=== PATIENT | female | born 1960 | race Native Hawaiian/Other Pacific Islander ===

== ENCOUNTER 2019-08-26 11:55 | Inpatient (IN) | payer OTHER ==
[~2019-08-26] VITALS: Ht 157.5 cm; Wt 59.0 kg
[2019-08-26 11:57] VITALS: BP 100/52
[2019-08-26 13:03] LABS: HEMATOCRIT 25.2 % (37.0-47.0); HEMOGLOBIN 8.3 gm/dL (12.0-15.0); MCH 26.6 pg (26.0-34.0); MCHC 32.8 g/dL (28.0-37.0); MCV 81.1 fL (80.0-100.0); PLATELET COUNT 227 thou/uL (150-400); RBC 3.11 mil/uL (4.20-5.00); RDW 17.5 % (10.5-14.5); WBC 7.2 thou/uL (4.0-11.0)
[2019-08-26 13:12] LABS: CREATININE 0.7 mg/dL (0.6-1.0); POTASSIUM 3.3 mmol/L (3.5-5.1)
[2019-08-26 13:22] LABS: ALBUMIN 2.1 g/dL (3.4-5.0); TOTAL PROTEIN 5.8 g/dL (6.4-8.2)
[2019-08-26 13:28] LABS: ABSOLUTE NEUTROPHILS 6.1 thou/uL (1.4-8.2)
[2019-08-26 13:29] LABS: ANISOCYTOSIS 1+; POLYCHROMASIA OCCASIONAL
[2019-08-26 14:17] LABS: URINE BILIRUBIN 1+ (Negative); URINE BLOOD TRACE (Negative); URINE CLARITY CLEAR; URINE COLOR YELLOW; URINE GLUCOSE-RANDOM* NEGATIVE (Negative); URINE KETONES NEGATIVE (Negative); URINE LEUKOCYTES-REFLEX NEGATIVE (Negative); URINE NITRITE-REFLEX NEGATIVE (Negative); URINE PROTEIN (DIPSTICK) TRACE (Negative); URINE SPECIFIC GRAVITY 1.015 (1.005-1.035)
[2019-08-26 14:21] LABS: ICTOTEST (BILI CONFIRMATORY) Negative (Negative)
[2019-08-26 17:27] LABS: APTT 41.9 Seconds (24.5-32.8); INR 1.1; PROTIME 10.8 Seconds (9.3-11.4)
--- NOTE | 2019-08-26 17:49 | NUR ---
HOSPITALIST AT BEDSIDE TO ASSESS PT AND DISCUSSED WITH FAMILY PLAN OF CARE
[2019-08-26 18:10] VITALS: BP 109/60
[2019-08-26 18:30] VITALS: BP 102/76
--- NOTE | 2019-08-26 18:59 | NUR ---
patient admit to unit at 1845. report given to june RN.
[2019-08-26 20:17] VITALS: BP 90/50
[2019-08-26 21:58] LABS: HEMATOCRIT 23.4 % (37.0-47.0); HEMOGLOBIN 7.6 gm/dL (12.0-15.0)
[2019-08-26 22:15] LABS: D-DIMER 2.1 ug/mLFEU (0.19-0.50)
[2019-08-26 22:20] LABS: FIBRINOGEN 508.6 mg/dL (210-360)
[2019-08-26 22:57] VITALS: BP 88/44
[2019-08-26 23:52] VITALS: BP 95/46
[2019-08-27] VITALS (54 sets, daily range): BP systolic 49–143; BP diastolic 21–73
[2019-08-27 00:39] LABS: HEMATOCRIT 22.2 % (37.0-47.0); HEMOGLOBIN 7.2 gm/dL (12.0-15.0); MCH 26.7 pg (26.0-34.0); MCHC 32.4 g/dL (28.0-37.0); MCV 82.3 fL (80.0-100.0); RBC 2.7 mil/uL (4.20-5.00); RDW 17.4 % (10.5-14.5); WBC 7.6 thou/uL (4.0-11.0)
[2019-08-27 00:46] LABS: CALCIUM 6.8 mg/dL (8.5-10.1); CREATININE 0.8 mg/dL (0.6-1.0); POTASSIUM 3.2 mmol/L (3.5-5.1)
--- NOTE | 2019-08-27 01:58 | NUR ---
PT ARRIVED TO ICU ACCOMPANIED BY 3W RNGABBY. PT PASHTO SPEAKING ONLY. PT ALERT AND ORIENTED TO PERSON, PLACE AND SITUATION. PT C/O TENDERNESS ON HER MIDSECTION EXTENDING FROM HER PUBIS AREA DOWN TO HER KNEES. PT SR ON THE MONITOR. HYPOTENSIVE. BLOOD TRANSFUSION CONSENT OBTAINED. PT ORIENTATED TO THE ROOM. WILL CONTINUE TO MONITOR.
--- NOTE | 2019-08-27 02:32 | NUR ---
PT ADMITTED TO [facility] FROM ER FROM HOME. SHE CAME IN FOR C/O BILATERAL GROIN PAIN AND PUBIS PAIN. PT STATED PAIN BECAME WORSE STARTING ON WEDNESDAY NIGHT TO THE POINT WHERE SHE IS UNABLE TO WALK TODAY DUE TO THE PAIN. PT IS CROATIAN SPEAKING ONLY. BOOK RETAILER WAS NEEDED TO OBTAIN HER ADMISSIONS DATA. PT IS A POOR HISTORIAN REGARDING HER MEDICATION DOSES AND DID NOT HAVE A CURRENT LIST OF HER HOME MEDICATIONS. WHEN BOOK RETAILER ASKED HER FOR HER DAUGHTERS PHONE NUMBER PT STATED SHE DID NOT KNOW IT BUT GAVE US HER HOME NUMBER BECAUSE HER DAUGHTER GOES THERE FREQUENTLY. A&O X4. RUBY. FOLLOWS FEW COMMANDS WITH HAND GESTURES. INSTRUCTED PT ON FALL PRECAUTIONS WITH HELP OF BOOK RETAILER. HRR, LUNGS CTA. BP AT START OF SHIFT IN 90'S OVER 50'S. 99.5T . SAT WNL ON RA. A FEW HOURS LATER BP DROPPED TO 88/40'S. NOTIFIED TYSON BEAR REGARDING BP 88/44 , TEMP INCREASED TO 100.5, RR INCREASED T0 24, SATS STILL 97% ON RA., FIBRINOGEN 508.6, D-DIMER 2.10, HG DROPPED TO 7.6, REPORTED NO UO IN SEVERAL HOURS. BLADDER SCANNED 91 AND 114. NS BOLUS STARTED ORDERED. ABX STARTED. NS INCREASED TO 150 ORDERED. T&C DONE ORDERED. LABS SENT ORDERED. PT TRANSFERRED TO ICU ORDERED. CONSULTS CALLED ORDERED. TYSON BEAR SPOKE WITH DR LAUREN HERSELF. REPORT CALLED TO MIRNA PEREZ IN ICU.
[2019-08-27 05:14] LABS: HEMATOCRIT 24.8 % (37.0-47.0); HEMOGLOBIN 8.1 gm/dL (12.0-15.0); MCH 26.4 pg (26.0-34.0); MCHC 32.8 g/dL (28.0-37.0); MCV 80.6 fL (80.0-100.0); RBC 3.08 mil/uL (4.20-5.00); RDW 18.7 % (10.5-14.5); WBC 7.3 thou/uL (4.0-11.0)
[2019-08-27 05:25] LABS: CALCIUM 6.8 mg/dL (8.5-10.1); CREATININE 0.7 mg/dL (0.6-1.0); POTASSIUM 3.6 mmol/L (3.5-5.1)
--- NOTE | 2019-08-27 10:25 | HC ---
[facility] [address] [place] [address] CONSULTATION Name: SENA CARRASCO Room #: 239-P ADM IN M.R.#: [id number] Admission: 08/26/19 Attend Phys: Delonte Beverly Discharge: Date of : 60 Report #: [id number] THIS REPORT FOR: cc: SCAR - Melony family physician/PCP SCAR - Melony family physician/PCP Kieran Donaldson MD ~ CC: [facility] physician/PCP Delonte Beverly DATE OF SERVICE: 08/27/2019 ATTENDING PHYSICIAN: Dr. Beverly. REASON FOR EVALUATION: Gram-positive septicemia. HISTORY OF PRESENT ILLNESS: Chart reviewed, patient examined. 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 It is not clear in her mind what initiated it. She did subsequently developed difficulty walking. She was evaluated, felt to have a pelvic-related musculoskeletal issue, was seen by a chiropractor, subsequently was evaluated, was found to have fever reportedly as high as 105. She is now currently in the intensive care unit. She is lucid. Denies any particular risk factors. 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 No other exposure history. Evaluation was done including CT which showed there is some subcutaneous fat stranding in anterior pelvis extending into the mons, some effusion, and a 6-cm fluid collection in the right adductor longus muscle. There is question of a hematoma. Chest x-ray was otherwise unremarkable as was urinalysis. Had been transfused 1 unit. Blood cultures collected at the time of admission, 1 growing gram-positive cocci, empirically started on therapy with vancomycin as well as Zosyn. ALLERGIES: None known. CURRENT MEDICINES: Include the vanco, Zosyn, insulin lispro, p.r.n. analgesics, antiemetics, zolpidem. PAST MEDICAL HISTORY: As noted above, Vvayd-Molrp-Pfppi syndrome, diabetes mellitus, chronic anemia. SOCIAL HISTORY: Nonsmoker, no ethanol, no illicit drug use. FAMILY HISTORY: Noncontributory. REVIEW OF SYSTEMS: As above. Denies any significant pulmonary-related complaints. She is generally lucid. [address] [address] CONSULTATION Name: SENA CARRASCO Room #: 239-P [facility] IN M.R.#: [id number] Admission: 08/26/19 Attend Phys: Delonte Beverly Discharge: Date of : 60 Report #: [id number] PHYSICAL EXAMINATION: GENERAL: Pjfb-jp-unlpfvia distress. She is not encephalopathic. VITAL SIGNS: Temperature 99, T-max recorded here 103.5; pulse 82; respirations 27; blood pressure 97/47. SKIN: Warm, dry, no rashes. HEENT: Normocephalic. Extraocular muscles intact. NECK: Supple. LUNGS: Clear to auscultation bilaterally. HEART: Regular. I do not appreciate a murmur. ABDOMEN: Soft, nontender, nondistended. EXTREMITIES: Lower extremities without evidence of palpable tenderness. GENITOURINARY AND RECTAL: Deferred. LABORATORY AND IMAGING DATA: Blood cultures described above, 1 out of 2 with Gram-positive cocci. Most recent electrolytes from this morning: Sodium 136, potassium 3.6, chloride 106, bicarb is 22, anion gap of 8, BUN and creatinine 11 and 0.7, estimated GFR of 86. CBC: White count 7.3, H and H 8.1 and 24.8, platelets of 149. Lactic acid of 0.9. TSH of 1.280, CRP of 158.9. CT abdomen and pelvis as noted above. Comprehensive showed alk phos elevated at 456. Total bili 1.0, albumin of 2.1, total protein of 5.8. ASSESSMENT AND PLAN: Gram-positive cocci isolated in the blood culture, 1 out of 2. The patient has a pelvic fluid collection. It is difficult to ascertain what this may be. I think it is most likely a hematoma, certainly could be complicated by secondary infection. Seemingly, her temperature has come down. Whether this is due to initiation of antibiotics is unclear. We will continue those for the moment. We will await identification of the organism. Certainly, if it is a known pathogen, not clear as to the mechanism as now this would have developed and then probably her predilection to hemorrhage if she had a vigorous response to coughing or vomiting. See how she does clinically over the course of next 24 hours. Has multiple evaluators. Some consideration of surgery. Other option might be percutaneous aspiration to further define. <ELECTRONICALLY SIGNED> By: Kieran Donaldson MD 08/27/19 1025 0645 0800 Kieran Donaldson MD /nt
--- NOTE | 2019-08-27 16:49 | NUR ---
NO BLEEDING NOTED THIS SHIFT. PAIN CONTINUES TO LOWER ABDOMEN AND UPPER THIGHS WITH ANY MOVEMENT. CONTROLLED WITH MORPHINE. NO CHEST PAIN OR N/V. SR ON MONITOR AND BP WNL. VOIDS WITHOUT DIFFICULTY. COMMUNICATION WITH PATIENT THROUGH [employer]. SPOKE WITH DAUGHTER DARRION SEVERAL TIMES THIS SHIFT AND UPDATED HER ON PATIENT CONDITION.
[2019-08-27 20:11] LABS: % SATURATION 3 % (20-39); IRON 6 ug/dL (50-170); TIBC 179 ug/dL (250-450)
[2019-08-28] VITALS (46 sets, daily range): BP systolic 62–150; BP diastolic 33–88
[2019-08-28 04:54] LABS: HEMOGLOBIN 7.8 gm/dL (12.0-15.0); MCH 25.4 pg (26.0-34.0); MCHC 31.3 g/dL (28.0-37.0); MCV 81.3 fL (80.0-100.0); PLATELET COUNT 161 thou/uL (150-400); RBC 3.08 mil/uL (4.20-5.00); RDW 18.8 % (10.5-14.5); WBC 5.1 thou/uL (4.0-11.0)
[2019-08-28 05:05] LABS: APTT 45.6 Seconds (24.5-32.8); INR 1.3; PROTIME 13.1 Seconds (9.3-11.4)
[2019-08-28 05:15] LABS: ALBUMIN 1.5 g/dL (3.4-5.0); CALCIUM 6.4 mg/dL (8.5-10.1); CREATININE 0.7 mg/dL (0.6-1.0); MAGNESIUM 1.7 mg/dL (1.8-2.4); PHOSPHORUS 2.5 mg/dL (2.5-4.9); TOTAL BILIRUBIN 1.7 mg/dL (0.2-1.0); TOTAL PROTEIN 4.9 g/dL (6.4-8.2)
--- NOTE | 2019-08-28 05:49 | NUR ---
ASSUMED CARE 1900. PT ALERT AND ORIENTED. POLISH SPEAKING ON. RPG DEVELOPER UTILIZED. C/O GROIN AREA AND THIGH PAIN. MORPHINE AND TYLENOL PRN GIVEN. PT DENIES CHEST PAIN, NAUSEA OR VOMITING. PT REPORTS THAT SHE ALWAYS HAS NOSE BLEEDINGS ESPECIALLY WHEN MOVING AROUND OR STRAINING ON ANY KIND. DURING BEDPAN USE, PT REPORTED FEELS LIKE SHE WAS BLEEDING , SHE COULD FEEL BLOOD RUNNING DOWN HER THROAT NO ACTIVE NOSE BLEEDING OBSERVED. HGB 7.8 THIS MORNING FROM 8.1. VOIDING MINIMAL CONCENTRATED URINE. WILL CONTINUE TO MONITOR AND FOLLOW POC.
[2019-08-28 08:21] LABS: ABSOLUTE NEUTROPHILS 4.1 thou/uL (1.4-8.2); ANISOCYTOSIS 1+; PLATELET ESTIMATE NORMAL
--- NOTE | 2019-08-28 10:00 | NUR ---
chart review. unable to visit with pt at this time. cm called daughter rachelle, " ok let me end my phone call and add my sister to the call. cm placed on hold, then [facility] was face time from icu. will cont following as needed for dc needs.
--- NOTE | 2019-08-28 11:42 | NUR ---
discussed with md, pt going to need 2 nd negative covid test then can get ct of pelvis. cm tried calling pt daughter x 2 no answer. noted per chart pt is independent prior to hospital and has had bleed syndrome for a while, not 1st time she had this. will cont following as needed for dc needs. need to check with spouse or be able to visit with pt on being able to afford medications if needed, insurance pat.
--- NOTE | 2019-08-28 15:30 | NUR ---
PT CARE ASSUMED AT 0700, PT IS DIVEHI SPEAKING, INTERPRETING OFFICER CAPTAIN UTILIZED USED TO COMMUNICATE WITH PT. PT IS ALERT AND ORIENTED X4, DENIES CHST PAIN, NUASEA AND VOMITNG. PT IS ON ROOM AIR, O2 SAT WNL. COMPLAINS OF PELVIC AND VAGINA PAIN, STATES ITS A PRESSURE PAIN, 10/22, DR. LOZADA IS AWARE. PT TAKEN DOWN FOR A PELVIS CT. MORPHINE PRN GIVEN FOR PAIN ORDERED. PT STATES PAIN IS BETTER. CALL LIGHT TABLE WITHIN REACH. BED AT LOWEST LEVEL WITH ALARM ON. WILL CONTINUE TO MONITOR.
--- NOTE | 2019-08-28 16:02 | NUR ---
PT OFF ISOLATION PER DR. HARGROVE, INFECTIOUS DISEASE DOCTOR.
--- NOTE | 2019-08-28 17:46 | NUR ---
1700 PT COMPLAINS OF INCREASE PELVIC PAIN, DESCRIBES PAIN PRESSURE 10/10. MORPHINE GIVEN, DR. NEVILLE CUMMINGS.
--- NOTE | 2019-08-28 23:29 | NUR ---
PATIENT ADMITTED FROM ED DEPARTMENT AFTER COMPLETION OF CT SCAN AT 2024. PATIENT ALERT AND ORIENTED X4, PAIN CONTROLLED WITH MEDICATION. ON 4L NASAL CANNULA, NON-PRODUCTIVE COUGHT. LABWORK COMPLETED. NORMAL SALINE INFUSION, LEFOPHED AT 10MCG, SBP REMAINS ABOVE 60. PATIENT DID NOT VOID IN ED DEPARTMENT, NOTED HISTORY OF HESITANCY. MCALLISTER INSERTED PER ORDER, IMMEDIATLY DRAINED 1750 CLEAR YELLOW URINE, UA AND CULTURE SENT. NOTIFIED ASSEMBLY LINE INSPECTOR CHEMA THAT FULL SEPSIS PROTOCAL WASN'T ORDERED, NEW ORDERS NOTED. LACTIC DECREASED FROM INITIAL 5.[address] BEAR AWARE AND SERIAL LABWORK NOT COMPLED, WILL RECECK LABWORK IN THE MORNING. PATIENT STATED THAT WALLETT AND PANTS WERE MISSING, ER AND SECURITY NOTIFIED. PATIENT SPOKE WITH NEIGHBOR AND IT WAS CONFIRMED THAT GIRLFRIEND TOOK BELONGINGS HOME. PATIENT STATES GIRLFRIEND HAS A HISTORY OF CONFUSION. CALLED SON (STEPHAN) AT 2200 AND UPDATED ON PATIENT'S CONDITION. NO SIGN OF ACUTE DISTRESS NOTED AT THIS TIME. WILL CONTINUE TO MONITOR.
[2019-08-29] VITALS (38 sets, daily range): BP systolic 113–195; BP diastolic 53–113
--- NOTE | 2019-08-29 05:30 | NUR ---
PT STILL IN PAIN, PAIN MANAGED WITH TYLENOL AND MORPHINE OVERNIGHT. PT RESTED WELL OVERNIGHT. EDEMA NOTED ON LEFT HAND 2+. NO FURTHER COMPLAINS. PT IS STABLE WILL CONTINUE TO MONITOR.
[2019-08-29 05:44] LABS: HEMATOCRIT 25.9 % (37.0-47.0); HEMOGLOBIN 8.2 gm/dL (12.0-15.0); MCH 25.7 pg (26.0-34.0); MCHC 31.8 g/dL (28.0-37.0); MCV 80.8 fL (80.0-100.0); PLATELET COUNT 227 thou/uL (150-400); RBC 3.21 mil/uL (4.20-5.00); RDW 19.3 % (10.5-14.5); WBC 8.4 thou/uL (4.0-11.0)
[2019-08-29 05:58] LABS: CALCIUM 7.2 mg/dL (8.5-10.1); CREATININE 0.5 mg/dL (0.6-1.0); MAGNESIUM 1.9 mg/dL (1.8-2.4); POTASSIUM 3.7 mmol/L (3.5-5.1)
[2019-08-29 09:22] LABS: ABSOLUTE NEUTROPHILS 6.6 thou/uL (1.4-8.2)
[2019-08-29 09:23] LABS: METAMYELOCYTES 2 %
[2019-08-29 09:24] LABS: ANISOCYTOSIS 2+; HYPOCHROMASIA 1+
--- NOTE | 2019-08-29 16:22 | NUR ---
PATIENT REPORTS PAIN MORE CONTROLLED AFTER SWITCHING TO PO PAIN MEDICATION. US OF GROIN AND ABDOMEN COMPLETED TODAY. PATIENT COMPLAINS OF INCREASED INFLAMMATION TO EXTREMITIES AND ABDOMEN. PROVIDER NOTIFIED AND ORDERS OBTAINED. SPOKE WITH PATIENT'S DAUGHTER TWICE THIS SHIFT WITH UPDATES. PATIENT CHOSE DAUGHTER DESIGNATED VISITOR, EDUCATED PT AND FAMILY REGARDING POLICY FOR VISITATION. ACCURATELY ACKNOWLEDGED UNDERSTANDING WITH VERBAL CONFIRMATION. PATIENT IS ABLE TO MOVE SELF MORE TOWARDS END OF SHIFT WHILE PAIN IS MORE CONTROLLED. STILL UNABLE TO GET OUT OF BED. USING BEDPAN TO VOID. DENIES FEELINGS OF CONSTIPATION. PATIENT CALLS FOR ASSIST APPROPRIATELY. PATIENT CONTINUES TO HAVE DECREASED APPETITE. TOLERATES PO HYDRATION ADEQUATELY AND WILL EAT ITEMS SUCH JELLO AND APPLE SAUCE BUT STATES THAT SHE FEELS TOO TIGHT IN ABDOMEN TO TOLERATE FOOD. REPORT GIVEN TO FAIZA PEREZ AT 16:22.
[2019-08-30] VITALS (12 sets, daily range): BP systolic 116–166; BP diastolic 56–82
--- NOTE | 2019-08-30 05:29 | NUR ---
ASSUMED CARE OF PATIENT AT 1900. VSS, AFEBRILE. RESTING COMFORTABLY THROUGH THE NIGHT. USES BEDPAN FREQUENTLY DUE TO PO LASIX YESTERDAY. NO S/S OF DISTRESS. PROGRESSING TOWARDS POC GOALS.
[2019-08-30 06:26] LABS: HEMATOCRIT 27.5 % (37.0-47.0); HEMOGLOBIN 8.6 gm/dL (12.0-15.0); MCH 24.7 pg (26.0-34.0); MCHC 31.2 g/dL (28.0-37.0); RBC 3.48 mil/uL (4.20-5.00); RDW 18.9 % (10.5-14.5); WBC 11.5 thou/uL (4.0-11.0)
[2019-08-30 06:28] LABS: APTT 42.3 Seconds (24.5-32.8); INR 1.2; PROTIME 11.8 Seconds (9.3-11.4)
[2019-08-30 06:43] LABS: ALBUMIN 1.7 g/dL (3.4-5.0); CALCIUM 7.6 mg/dL (8.5-10.1); CREATININE 0.5 mg/dL (0.6-1.0); MAGNESIUM 1.6 mg/dL (1.8-2.4); TOTAL BILIRUBIN 0.9 mg/dL (0.2-1.0); TOTAL PROTEIN 5.5 g/dL (6.4-8.2)
[2019-08-30 06:45] LABS: POTASSIUM 2.8 mmol/L (3.5-5.1)
--- NOTE | 2019-08-30 07:48 | EKG ---
[facility] [place] [address] ELECTROCARDIOGRAM REPORT Name: SENA CARRASCO Room #: 239-P ADM IN M.R.#: [id number] Admission: 08/26/19 Attend Phys: Delonte Beverly Discharge: Date of : 60 Report #: [id number] THIS REPORT FOR: cc: SCAR - Melony family physician/PCP SCAR - Melony family physician/PCP He Miller MD [facility] THIS REPORT FOR: //name// [facility] Test Date: 2019-08-30 Test Time: 07:16:14 Pat Name: SENA CARRASCO Department: Room: 239 P Gender: F Supervisor [employer]: Kae JUAREZ : 1960 Requested By: David Samuel Order Number: [id number] MD: He Miller Measurements Intervals Ohlman Rate: 81 P: 39 WI: 159 QRS: 25 QRSD: 101 T: 30 QT: 377 QTc: 438 Interpretive Statements Sinus rhythm Normal tracing No previous ECG available for comparison Electronically Signed On 08-30-2019 7:47:09 CDT by He Miller [email or web address] <ELECTRONICALLY SIGNED> By: He Miller MD, [facility] [id number] [phone] He Miller MD, [facility] /EPI
--- NOTE | 2019-08-30 10:21 | 2DMMODE ---
[facility] [address] [facility] [place] [address] 2 D/M-MODE ECHOCARDIOGRAM Name: SENA CARRASCO Room #: 239-P ADM IN M.R.#: [id number] Admission: 08/26/19 Attend Phys: Delonte Beverly Discharge: Date of : 60 Report #: [id number] THIS REPORT FOR: cc: FAM - No family physician/PCP FAM - No family physician/PCP René Mendoza MD ~ APPROVED REPORT Study performed: 08/30/2019 09:38:01 EXAM: Comprehensive 2D, Doppler, and color-flow Echocardiogram Patient Location: ICU Room #: 239 Status: routine BSA: 1.57 HR: 82 bpm BP: 124/56 mmHg Rhythm: NSR Other Information Study Quality: Good Indications Bacteremia, sepsis. Hx: DM 2D Dimensions RVDd: 42.13 mm IVSd: 9.79 (7-11mm) LVOT Diam: 20.46 (18-24mm) LVDd: 51.16 mm PWd: 10.68 (7-11mm) Ascending Ao: 30.20 (22-36mm) LVDs: 35.06 (25-40mm) Aortic Root: 32.54 mm Volumes Left Atrial Volume (Systole) Single Plane 4CH: 90.68 mL Single Plane 2CH: 74.55 mL LA ESV Index: 57.00 mL/m2 Aortic Valve AoV Peak Jace.: 2.34 m/s AO Peak Gr.: 21.95 mmHg LVOT Max P.16 mmHg LVOT Max V: 1.59 m/s THANH Vmax: 2.24 cm2 [facility] [address] [place] [address] 2 D/M-MODE ECHOCARDIOGRAM Name: SENA CARRASCO Room #: 239-P [facility].#: [id number] Admission: 08/26/19 Attend Phys: Delonte Johnson Discharge: Date of : 60 Report #: [id number] Mitral Valve E/A Ratio: 0.8 MV Decel. Time: 179.46 ms MV E Max Jace.: 1.31 m/s MV A Jace.: 1.68 m/s MV PHT: 52.04 ms IVRT: 55.36 ms Pulmonary Valve PV Peak Jace.: 1.24 m/s PV Peak Gr.: 6.16 mmHg Pulmonary Vein P Vein S: 0.56 m/s P Vein A: 0.47 m/s P Vein D: 0.45 m/s P Vein A Dur.: 121.1 msec P Vein S/D Ratio: 1.24 Tricuspid Valve TR Peak Jace.: 2.87 m/s RAP Estimate: 10.00 mmHg TR Peak Gr.: 33.02 mmHg PA Pressure: 43.00 mmHg Left Ventricle The left ventricle is normal size. There is normal LV segmental wall motion. There is normal left ventricular wall thickness. Left ventricular systolic function is normal. LVEF is 60-65%. Mild diastolic dysfunction is present (impaired relaxation pattern). Right Ventricle The right ventricle is normal size. The right ventricular systolic function is normal. Atria Left atrium is severely dilated. Right atrium is at the upper limits of normal. Aortic Valve The aortic valve is normal in structure. No aortic regurgitation is present. There is no aortic valvular stenosis. Mitral Valve Mitral valve leaflets are mildly calcified. Mild mitral annular calcification. Trace to mild mitral regurgitation. No evidence of mitral valve stenosis. [facility] [address] [place] [address] 2 D/M-MODE ECHOCARDIOGRAM Name: SENA CARRASCO Room #: 239-P [facility] IN M.R.#: [id number] Admission: 08/26/19 Attend Phys: Delonte Johnson Discharge: Date of : 60 Report #: [id number] Tricuspid Valve The tricuspid valve is normal in structure. Trace to mild tricuspid regurgitation. Estimated PAP is 40-45mmHg. Pulmonic Valve The pulmonary valve is normal in structure. Trace pulmonic regurgitation. Great Vessels The aortic root is normal in size. The ascending aorta is normal in size. IVC is dilated and partially collapses. Pericardium There is no pericardial effusion. <Conclusion> The left ventricle is normal size. LVEF is 60-65%. Left atrium is severely dilated. The aortic valve is normal in structure. Mitral valve leaflets are mildly calcified. Mild mitral annular calcification. Trace to mild mitral regurgitation. The tricuspid valve is normal in structure. Trace to mild tricuspid regurgitation. Estimated PAP is 40-45mmHg. The pulmonary valve is normal in structure. Trace pulmonic regurgitation. There is no pericardial effusion. <ELECTRONICALLY SIGNED> By: René Mendoza MD 08/30/19 1020 1020 1020 René Mendoza MD /INF
--- NOTE | 2019-08-30 15:34 | NUR ---
ECHO DONE, EF 60-65% WITH SEVERE L ATRIUM DILATION. SR WITHOUT ECTOPY. MAGNESIUM AND POTASSIUM REPLACED TODAY. AFEBRILE. PAIN SLIGHTLY BETTER AND CONTROLLED WITH TRAMADOL AND TIZANIDINE. OFFERED TO GET OUT OF BED TODAY BUT PATIENT REFUSED, TOO PAINFUL. PLAN ON REPEAT SOFT TISSUE US IN GROIN AREA TOMORROW.
[2019-08-31 05:45] LABS: HEMATOCRIT 26.7 % (37.0-47.0); HEMOGLOBIN 8.7 gm/dL (12.0-15.0); MCH 25.3 pg (26.0-34.0); MCHC 32.4 g/dL (28.0-37.0); MCV 78.1 fL (80.0-100.0); PLATELET COUNT 297 thou/uL (150-400); RBC 3.41 mil/uL (4.20-5.00); RDW 18.5 % (10.5-14.5); WBC 12.3 thou/uL (4.0-11.0)
[2019-08-31 06:04] LABS: CALCIUM 7.6 mg/dL (8.5-10.1); CREATININE 0.5 mg/dL (0.6-1.0); MAGNESIUM 1.6 mg/dL (1.8-2.4); POTASSIUM 3.4 mmol/L (3.5-5.1)
[2019-08-31 07:40] VITALS: BP 142/77
--- NOTE | 2019-08-31 11:48 | NUR ---
Nutrition: pt admitted with bilateral inner thigh pain, likely groin hematoma with possible infection and abscess per chart review. Consult received for food preferences. Pt is burmese speaking only and son/nsg present to interpret. During visit, pt voiced no specific food preferences stating things are better now since she had a BM. Is eating 50-75% of meals at present. RD provided menu and educated on ordering from alternative menu as desired with staff assist. No weight loss, UBW reported 116#. Current trends 137#, edema present. BG controlled on carb controlled diet. Place as low nutrition risk.
[2019-08-31 12:20] VITALS: BP 148/65
[2019-08-31 13:25] LABS: METAMYELOCYTES 2 %; MYELOCYTES 5 %
[2019-08-31 13:26] LABS: ANISOCYTOSIS 2+; HYPOCHROMASIA 2+; OVALOCYTES FEW; POLYCHROMASIA OCCASIONAL
[2019-08-31 15:25] VITALS: BP 132/64
[2019-08-31 20:45] VITALS: BP 137/62
--- NOTE | 2019-08-31 21:00 | NUR ---
ASSUMED CARE OF PATIENT AT 0700. ASSESSMENTS COMPLETED. PATIENT GERMAN SPEAKING. PATIENT COMPLAINS OF RIGHT GROIN PAIN WHICH IS GIVEN MINIMAL RELIEF WITH TRAMADOL. PATIENT WORKED WITH PT AND WAS ABLE TO STAND AND SLOWLY MOVE TO THE CHAIR AFTER SITTING ON THE BEDSIDE COMMODE FOR A SHORT TIME. PATIENT CONTINUES TO USE BEDPAN. ACCU CHECKS AC&HS. PATIENT'S RIGHT HAND IV INFILTRATED AND A NEW ONE WAS PLACED IN THE RIGHT FOREARM. NO SIGNS OF SWELLING, REDNESS OR PAIN AT RIGHT HAND SITE. PATIENT TO CONTINUE WITH POC.
[2019-09-01 00:52] VITALS: BP 125/61
[2019-09-01 04:45] VITALS: BP 146/62
--- NOTE | 2019-09-01 04:54 | NUR ---
ASSUMED CARE OF PATIENT AT 1900. PATIENT AFEBRILE. NO S/S OF ACTIVE BLEEDING OBSERVED. PATIENT C/O PAIN IN GROIN AND BILATERAL THIGHS AT BEGINNING OF NIGHT. ADMINISTERED TRAMADOL AND TIZANIDINE. MEDICATION EFFECTIVE PATIENT RESTED WELL REMAINDER OF NIGHT.
[2019-09-01 07:55] VITALS: BP 135/62
[2019-09-01 11:45] VITALS: BP 138/65
--- NOTE | 2019-09-01 12:32 | NUR ---
Chart reviewed and case discussed with the care team. [employer] [place] and the pt does not have health insurance. Pt will likely need the lucinda application. She lives with her spouse and some adult children in a split level home. 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 She has had pain in her thigh and trouble with her mobility for several weeks prior to being admitted. She went to her pcp at the [facility] in [place] which is a [facility] clinic. She also was seen by a chiropractor. She has 6 children and very supportive family. She is Kiswahili speaking and is from [place]. She does travel back and forth to visit family. Plan of care pending CT scan today for possible surgical I/D. PT oswald noted. Will follow along for possible dme or medication assistance at [place].
[2019-09-01 15:41] VITALS: BP 151/64
--- NOTE | 2019-09-01 16:35 | NUR ---
ASSUMED PATIENT CARE AT 0700 THIS MORNING. PATIENT REMAINED AWAKE ALERT ORIENTED THROUGHOUT THIS SHIFT. VSS AND ASSESSMENTS CHARTED. PATIENT WAS ABLE TO WORK WITH PHYSICAL THERAPY AND GET UP WITH ASSISTANCE TO BEDSIDE CHAIR AND BEDSIDE COMMODE WITH MODERATE PAIN. TRAMADOL GIVEN FOR PAIN X2 THIS SHIFT AND PATIENT REPORTS THAT THIS MEDICATION WAS EFFECTIVE IN PAIN RELIEF. PATIENT HAD CT SCAN THIS SHIFT AWAITING RESULTS OF SCAN. PATIENT VISITED WITH HER SON THIS AFTERNOON, THEY WERE UPDATED ON PLAN OF CARE. ALL QUESTIONS ANSWERED. NO DISTRESS NOTED THIS SHIFT. FALL PRECAUTIONS IN PLACE.
--- NOTE | 2019-09-01 17:24 | NUR ---
called dr. miranda regarding ct scan results, shows carol pleural effsions and diffuse anasarca. states to give 1x dsoe lasix 40mg. educated patient on plan. see new orders.
[2019-09-01 19:50] VITALS: BP 132/60
[2019-09-02 04:15] VITALS: BP 127/68
--- NOTE | 2019-09-02 05:09 | NUR ---
ASSUMED CARE OF PATIENT AT 1900. NO S/S OF ACTIVE BLEEDING OBSERVED. PATIENT DENIED ANY PAIN AT ASSESSMENT. PATIENT RESTED WELL THROUGH NIGHT AND IS PROGRESSING WELL TOWARDS GOALS.
[2019-09-02 07:45] VITALS: BP 145/61
[2019-09-02 13:29] VITALS: BP 153/68
[2019-09-02 15:35] VITALS: BP 132/59
--- NOTE | 2019-09-02 15:36 | NUR ---
ASSUMED CARE OF PT 0700. ALERT X4, PAIN MANAGED WITH MEDICTIONS. I/D OF PELVIC AND SEROUS FLUIDS CULTURED BY DR KIM. ABSCESS SIGHT RIGHT GROIN PACKED WITH IODDOFORM GAUZE AND GOVERED WITH GAUZE AND TAPE. PT DENIES PAIN POST PROCEDURE. PT NOTICE FACE AND FORHEAD BECOMING RED, DR TALAMANTES NOTIFIED WITH PRN BENADRYL ORDER GIVEN. PERSONAL ITEMS AND CALL LIGHT WITHIN REACH. CONTINUE TO MONITOR.
[2019-09-02 20:00] VITALS: BP 139/65
[2019-09-02 23:40] VITALS: BP 104/79
[2019-09-03 03:55] VITALS: BP 135/48
--- NOTE | 2019-09-03 05:38 | NUR ---
ASSUMED CARE OF PATIENT AT 1900. ASSESSMENT COMPLETED. DENIES ANY PAIN. IV ABX. ACCUCHECK AC&HS WITHOUT INSULIN COVERAGE GIVEN. PATIENT DENIES ANY ITCHING OR NEED FOR BENADRYL. PATIENT USING BEDPAN HERSELF BY RAISING PELVIS IN BED. SPOKE WITH PATIENT'S DAUGHTER FOR AN UPDATE VIA PHONE. PATIENT TO CONTINUE WITH POC.
[2019-09-03 07:45] VITALS: BP 148/71
[2019-09-03 09:28] LABS: HEMATOCRIT 30.2 % (37.0-47.0); HEMOGLOBIN 9.8 gm/dL (12.0-15.0); MCH 26.3 pg (26.0-34.0); MCHC 32.3 g/dL (28.0-37.0); MCV 81.4 fL (80.0-100.0); PLATELET COUNT 372 thou/uL (150-400); RBC 3.71 mil/uL (4.20-5.00); RDW 20.3 % (10.5-14.5)
[2019-09-03 09:30] LABS: CALCIUM 8.4 mg/dL (8.5-10.1); CREATININE 0.8 mg/dL (0.6-1.0); MAGNESIUM 1.9 mg/dL (1.8-2.4); POTASSIUM 4.4 mmol/L (3.5-5.1)
--- NOTE | 2019-09-03 11:15 | NUR ---
ASSUMED CARE PT SHIFT CHANGE. ASSESSMENT CHARTED.MEDS GIVEN PER MAY. PT ALERT AND ORIEINTED. VSS. C/O PAIN MANAGED WITH PO PAIN MEDS. KHMER SPEAKING ONLY, TRANSLATION RESOURCES USED. PT UP WITH WALKER TO HALLWAY AND BACK, CURRENTLY SITTING UP IN CHAIR. PT DENYING NEEDS AT THIS TIME. RIGHT GROIN ORIGINAL SURGICAL DRESSING REINFORCED WITH ABD, DRAINAGE NOTED. REPORT PASSED ON CHATO PEREZ.
[2019-09-03 12:37] LABS: ABSOLUTE NEUTROPHILS 8.9 thou/uL (1.4-8.2)
[2019-09-03 12:38] LABS: ANISOCYTOSIS 2+; MACROCYTES 1+; MICROCYTES 2+
[2019-09-03 13:49] VITALS: BP 127/56
[2019-09-03 15:43] VITALS: BP 142/69
--- NOTE | 2019-09-03 17:12 | NUR ---
ASSUMED PATIENT CARE TODAY AT APPROXIMATELY 1100. PATIENT AWAKE AND ALERT THROUGHOUT SHIFT. MEDS AND ASSESSMENTS DOCUMENTED. PATIENT ABLE TO AMBULATE WITH WALKER IN ROOM 2X THIS SHIFT. TOLERATED WELL. SEEN BY SURGEON AND INSTRUCTED NURSE TO CHANGE SURGICAL DRESSING TO RIGHT GROIN AND REPACK WITH GAUZE, WOUND CARE CONSULT ORDERED, WOUND CARE TO SEE PATIENT TOMMORROW AND REDRESS WOUND, EDUCATED PATIENT ON NEW ORDERS. ENCOURAGED PATIENT TO PERFORM IS AND AMBULATE MUCH TOLERATED. STATED UNDERSTANDING OF ALL TEACHING GIVEN. VSS THIS SHIFT. TOLERATING DIET WELL.
[2019-09-03 19:40] VITALS: BP 130/63
[2019-09-04 03:51] VITALS: BP 141/69
--- NOTE | 2019-09-04 05:37 | NUR ---
SLEPT MOST OF SHIFT. TRAMODOL GIVEN PRN FOR PAIN WITH NOTED RELIEF. TURNS SELF AND IS MOBILE IN BED. USES BEDPAN AT [facility] WITH MINIMAL ASSIST. WORKING ON GOALS AND PLAN OF CARE FOR NOC. AWAITING WOUND CARE TODAY TO ORDER DRESSING CHANGES. PROGRESSING SLOWLY TOWARDS DISCHARGE GOALS. CONTINUE TO ASSES CLOSELY.
[2019-09-04 08:10] VITALS: BP 136/78
[2019-09-04 11:55] VITALS: BP 158/76
--- NOTE | 2019-09-04 15:47 | NUR ---
WOUND CONSULT; ROUNDING WITH DR MONROY AND TAO PEREZ. THIS PATIENT HAS A RIGHT GROIN THAT IS PAINFULT. THE PATIENT REFUSES PAIN MEDICINE. PRIME BROKER KATTY IS PRESENT. THE WOUND WAS CLEANSED WITH SALINE AND THEN PACKED WITH 1"IODOFORM GAUZE, COVERED WITH AN ABD, SECURED WITH TAPE.
[2019-09-04 15:50] VITALS: BP 131/76
--- NOTE | 2019-09-04 16:09 | NUR ---
5N to review if candidate for acute rehab. Phys aware no insurance.
--- NOTE | 2019-09-04 17:08 | NUR ---
ASSESSMENT CHARTED. PT ALERT AND ORIENTED. SETSWANA SPEAKING. VSS. DENIED HAVING PAIN. WOUND CARE PROVIDED BY WOUND NURSE. UP IN THE CHAIR THIS SHIFT. EVALUATED BY PT/OT. WILL CONTINUE TO MONITOR.
[2019-09-04 20:04] VITALS: BP 146/69
[2019-09-05 05:05] VITALS: BP 151/70
--- NOTE | 2019-09-05 06:25 | NUR ---
RESTED QUIETLY MOST OF SHIFT. ASSISTED UP TO BATHROOM NEEDED. WORKING ON GOALS AND PLAN OF CARE FOR NOC. TRAMODOL GIVEN FOR PAIN WITH RELIEF AND MOROPHINE IVP GIVEN FOR BREAKTHROUGH PAIN. PROGRESSING SLOWLY TOWARDS DISCHARGE GOALS. CONTINUE TO ASSES CLOSELY.
[2019-09-05 08:00] VITALS: BP 149/73
[2019-09-05 12:24] VITALS: BP 133/63
--- NOTE | 2019-09-05 16:08 | NUR ---
Patient too high level for 5N. Patient speaks Uzbek. At this time inquiring into [facility] outpatient infusion for Daptomycin 500 mg once daily in outpatient infusion clinic. She also has wound care needs. Notified phys in process with dc planning.
--- NOTE | 2019-09-05 16:09 | NUR ---
PATIENT INFORMATION REVEIWED BY DAISY KASPER NP WITH DR. WILCOX. PATIENT HAS NO PHYSICAL THERAPY NEED. BASED ON LEVEL OF FUNCTION WITH AMBULATION, PATIENT CAN DISCHARGE TO HOME WITH FAMILY ASSIST FOR ADLS. FIELD RADIO TECHNICIAN INFORMED BY HATCHERY ATTENDANT.
[2019-09-05 16:47] VITALS: BP 147/59
--- NOTE | 2019-09-05 18:57 | NUR ---
VASCULAR ACCESS TEAM CONSULTED FOR PICC LINE FOR HOME ABX. PT'S LABS,MEDS,HISTORY, ORDER AND CONSENT VERIFIED. ELTON BASILIC WAS WIDELY PATENT WITH USG. 4FR SL POWER PICC TRIMMED TO 36CM INSERTED TO 0CM EXTERNAL. PT TOLERATED WELL. STAT CXR ORDERED
--- NOTE | 2019-09-05 19:57 | NUR ---
RECEIVED PT'S CARE AROUND 0720; PT. ON BED; AOX4; DURING AM ASSESSMENT NO C/O PAIN; ST. NOT HAVING WHILE RESTING; INSULIN GIVEN; HOLD MG & K DUE TO NO LABS & LAST LABS WNL; PHYSICIAN NOTIFIED DURING ROUNDINGS; NO NEW ORDERS; ORDERS FOR PICC PLACEMENT; PT. NOT AWARE OF IT; EXPLAINED & EDUCATED ABOUT IT; ST. UNDERSTANDING; EDUCATED ABOUT FALL PREVENTIONS & THE IMPORTANCE OF GETTING UP FROM BED; ST. UNDERSTANDING; ABLE TO WORK WITH PT & OT; SR ON THE MONITOR; ASSESSMENT CHARGED; FOLLOWING POC; PASSED ON REPORT;
--- NOTE | 2019-09-05 19:58 | NUR ---
CXR SHOWS PICC TOO DEEP WITHDREW 4CM, 2ND CXR DONE, CONFIRMED PICC AT [facility]. PICC RELEASED FOR IMMEDIATE USE PER PROTOCOL TO CRISTÓBAL PEREZ
[2019-09-05 21:07] VITALS: BP 138/67
--- NOTE | 2019-09-06 04:42 | NUR ---
ASSUMED PT CARE AT AROUND 1915, PT IS AWAKE, ALERT AND ORIENTED, SR ON THE MONITOR, C/O PAIN ON THE RIGHT INNER THIGH WITH MOVEMENT, MEDICATED PRN, NO FURTHER COMPLAINS, BS STABLE, ASSESSMENTS CHARTED, MEDICATIONS GIVEN ORDERED, PT REMAINS ON ROOM AIR, VSS, SLEEPING IN BED AT THIS TIME, NO DISTRESS NOTED, WILL CONTINUE TO MONITOR
[2019-09-06 05:36] VITALS: BP 139/61
[2019-09-06 06:14] LABS: HEMATOCRIT 30.5 % (37.0-47.0); HEMOGLOBIN 9.7 gm/dL (12.0-15.0); MCH 26.2 pg (26.0-34.0); MCHC 31.7 g/dL (28.0-37.0); MCV 82.8 fL (80.0-100.0); RBC 3.69 mil/uL (4.20-5.00); RDW 21.5 % (10.5-14.5); WBC 6.9 thou/uL (4.0-11.0)
[2019-09-06 06:33] LABS: CALCIUM 8.1 mg/dL (8.5-10.1); CREATININE 0.6 mg/dL (0.6-1.0); MAGNESIUM 1.8 mg/dL (1.8-2.4); POTASSIUM 4.4 mmol/L (3.5-5.1)
[2019-09-06 08:42] VITALS: BP 134/68
--- NOTE | 2019-09-06 11:24 | HC ---
[facility] [place] [address] CONSULTATION Name: SENA CARRASCO Room #: 206-P ADM IN M.R.#: [id number] Admission: 08/26/19 Attend Phys: Delonte Beverly Discharge: Date of : 60 Report #: [id number] THIS REPORT FOR: cc: SCAR - Melony family physician/PCP SCAR - No family physician/PCP Wm Hand MD ~ CC: [facility] physician/PCP Delonte Beverly DATE OF SERVICE: 09/04/2019 CHIEF COMPLAINT: Right inguinal abscess and surgical wound. HISTORY OF PRESENT ILLNESS: This is a 58-year-old female patient who was admitted on 08/26/2019 with pelvic pain and bilateral thigh pain. She underwent an incision and drainage procedure by Dr. Galeas. No pus was obtained, but there is now a cavity. I have been asked to see her with regard to wound care. PAST MEDICAL HISTORY: Significant for history of anemia, diabetes, Fqhlu-Slakt-Kupuo syndrome. SOCIAL HISTORY: Negative for alcohol or tobacco use. ALLERGIES: No known drug allergies. MEDICATIONS: Include cefazolin, diphenhydramine, glucagon, morphine, pantoprazole, polyethylene glycol, tizanidine, tramadol, zolpidem. FAMILY HISTORY: Noncontributory. REVIEW OF SYSTEMS: CONSTITUTIONAL: The patient denies fever, chills or weight loss. NEUROLOGICAL: The patient denies focal weakness, numbness or tingling. EYES: The patient denies visual changes, redness, or drainage. ENT: The patient denies earache, nasal drainage or sore throat. CARDIOVASCULAR: The patient denies chest pain, palpitation or diaphoresis. PULMONARY: The patient denies cough or shortness of breath. GASTROINTESTINAL: The patient denies nausea, vomiting, diarrhea or abdominal pain. ORTHOPEDIC: The patient complains of pain in the right groin area. Other systems in a 14-point review of systems are negative. PHYSICAL EXAMINATION: VITAL SIGNS: At this time include temperature 36.5, pulse 75, respiratory rate 18, blood pressure 130/76. [facility] [address] [place] [address] CONSULTATION Name: SENA CARRASCO Room #: 206-P [facility] IN M.R.#: [id number] Admission: 08/26/19 Attend Phys: Delonte Beverly Discharge: Date of : 60 Report #: [id number] GENERAL: This is a chronically ill-appearing female patient who appears to be in no obvious distress. HEENT: Head normocephalic. Nose and throat are clear. NECK: Supple. LUNGS: Clear. ABDOMEN: Soft. Bowel sounds present. EXTREMITIES: The right inguinal region demonstrates a surgical wound. It is healthy, clean, granulating. There is a bit of a cavity, no purulence or fluctuance is noted. No surrounding erythema. NEUROLOGIC: The patient is alert and oriented and appropriate. LABORATORY DATA: White blood cell count 10,000, hemoglobin 9.8. Sodium 132, potassium 4.4, chloride 99, CO2 of 28, BUN 8, creatinine 0.8, glucose 176, calcium is 8.4, albumin is very low at 1.7. CLINICAL IMPRESSION: 1. Hematoma versus abscess to the right inguinal region, status post surgical incision and drainage. 2. Diabetes mellitus. 3. Severe protein-calorie malnutrition. RECOMMENDATIONS: At this point in time, we will recommend aggressive nutritional support to maintain glycemic control as well as to maximize wound healing. We will recommend packing with 1 inch iodoform gauze daily to the right inguinal region. Continuation of current medications, physical therapy is as tolerated. I appreciate being asked to see her in consultation. <ELECTRONICALLY SIGNED> By: Wm Hand MD 09/06/19 1124 1743 20 Wm Hand MD /nt
--- NOTE | 2019-09-06 11:25 | NUR ---
Followup: Continues to eat well, 95-100% of meals, wts remain above stated usual of 116 lb, but are trending down (had some edema). BG well controlled. Low nutrition risk
[2019-09-06 12:03] VITALS: BP 131/79
[2019-09-06] MEDS ORDERED: CEFAZOLIN2 GM/100 M IV (12:19)
[2019-09-06] MEDS ORDERED: TIZANIDINE4 MG/1 TA1 PO (12:19)
[2019-09-06] MEDS ORDERED: TRAMADOL 50 MG50 MG PO (12:19)
[2019-09-06 12:29] VITALS: BP 131/79
[2019-09-06 14:31] VITALS: BP 131/79
--- NOTE | 2019-09-06 15:48 | NUR ---
DISCHARGE HOME TODAY, SPOKE WITH DAUGHTER DARRION WHO WILL COME TO HOSPITAL AFTER WORK AND GO OVER DISCHARGE ORDERS WITH HER URDU SPEAKING MOTHER.. SHE WILL COME TO INFUSION CENTER DAILY FOR ANTIBIOTICS AND PICC CARE, WOUND DRESSING WILL ALSO BE ADDRESSED WHILE SHE IS IN INFUSION CENTER.
--- NOTE | 2019-09-06 17:18 | NUR ---
Patient to dc home. Sp with administration who approved out patient infusion and wound care. Sp with Marie in outpatient infusion. They are not in the clinic today. SP with scheduling and scheduled apt for 1330 at infusion clinic request. Notified Gabino with wound care approval for him to see patient in the clinic. Notified dtr of time and where to go for apt. Vouched for JR carroll for patient with provider plus. Sp with Kelsey in infusion clinic and reviewed orders and arrangments. No further needs
[2019-09-07] MEDS ORDERED: CUBICIN500 MG IVPB (15:46)
--- NOTE | 2019-09-15 11:38 | HC ---
[facility] [place] [address] CONSULTATION Name: SENA CARRASCO Room #: 206-P [facility] IN M.R.#: [id number] Admission: 08/26/19 Attend Phys: Delonte Beverly Discharge: 09/06/19 Date of : 60 Report #: [id number] THIS REPORT FOR: cc: SCAR - No family physician/PCP SCAR - No family physician/PCP Hernan Redding MD ~ CC: [facility] physician/PCP Delonte Beverly DATE OF SERVICE: 09/04/2019 HISTORY OF PRESENT ILLNESS: The patient is a 58-year-old Palauan-speaking female admitted with pelvic and bilateral medial thigh pain and some difficulty walking. She noted groin pain. She was found to have a pubic symphysis joint effusion and 6 mm right adductor longus area that was an intramuscular hematoma. She underwent I and D of her pelvic fluid on 09/02/2019. Results have shown no pus, but serous fluid. Her diagnosis is that of an infected hematoma with Staphylococcus bacteremia. She has been on IV antibiotics as per Infectious Disease. 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 We are now seeing her in rehabilitation medicine consultation. 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 She also has a history of diabetes mellitus. MEDICATIONS: Please see the full medication listing. SOCIAL HISTORY: Lives in a house with her and family. No adaptive devices, works part-time cleaning houses. There are 5 inside steps without a handrail. REVIEW OF SYSTEMS: Did not offer any current complaints. ALLERGIES: No known drug allergies. PHYSICAL EXAMINATION: GENERAL: Pleasant, slender 58-year-old female in no obvious distress. The patient is alert. VITAL SIGNS: Last recorded temperature 98.6, pulse 77, respirations 18, and blood pressure 136/78. HEENT: Appeared to be benign. NEUROLOGIC: Cranial nerves are grossly intact. She has functional range of motion of both upper extremities without obvious focal weakness. DTRs are trace to 1. In her lower extremities, there is no focal calf swelling. She is able to dorsiflex both of her feet. She has good strength distally. Proximally, she was able to flex both hips with hip flexion, abduction, adduction, extension and showed good strength overall. Functionally, she is improved with sit to stand, [facility] [address] [place] [address] CONSULTATION Name: SENA CARRASCO Room #: 206-P [facility] IN M.R.#: [id number] Admission: 08/26/19 Attend Phys: Delonte Beverly Discharge: 09/06/19 Date of : 60 Report #: [id number] standby assistance and gait 75 feet standby assistance with a front-wheeled walker. ASSESSMENT: A 58-year-old female with a pubic symphysis joint effusion, status post incision and drainage being treated for an infected hematoma with Staphylococcus bacteremia. There is documentation of sepsis. She had prior severe anemia. 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 She has diabetes mellitus type 2 and protein-calorie malnutrition. PLAN: The patient is making nice progress with her functional mobility with ambulation, now just standby assistance with a front-wheeled walker 75 feet. Physical therapy to work on steps that she does have 5 steps inside her house. We will also add occupational therapy. She may be improving to the point where she can return directly home as she further medically stabilizes. We will be glad to follow along with you regarding her rehab therapy needs. <ELECTRONICALLY SIGNED> By: Hernan Redding MD 09/15/19 1138 1216 1644 Hernan Redding MD /nt
--- NOTE | 2019-09-18 06:36 | O ---
[facility] [address] OPERATIVE REPORT Name: SENA CARRASCO Room #: 206-P [facility] IN M.R.#: [id number] Admission: 08/26/19 Attend Phys: Delonte Beverly Discharge: 09/06/19 Date of : 60 Report #: [id number] THIS REPORT FOR: cc: SCAR - No family physician/PCP SCAR - No family physician/PCP Chaop Galeas MD ~ CC: [facility] physician/PCP Delonte Beverly PREOPERATIVE DIAGNOSIS: Pelvic fluid collection. POSTOPERATIVE DIAGNOSIS: Pelvic fluid collection. OPERATION: Incision and drainage of a pelvic fluid collection. SURGEON: Chapo Galeas MD ANESTHESIA: General. ESTIMATED BLOOD LOSS: Minimal. SPECIMEN: Fluid for culture and sensitivity. DESCRIPTION OF PROCEDURE: After informed consent was obtained, the patient was brought to the operating room and placed supine. SCDs were placed and working, preoperative antibiotics were administered, general anesthesia was induced. The pelvis was prepped and draped in the usual sterile fashion. A 2 cm incision was made in the right groin. Cautery dissection was made down through the subcutaneous fat. I was able to bluntly probe in the area. There was serous fluid that was expressed; however, I did not find any pockets of pus. I was able to probe in the areas consistent with the CT. The fluid was then cultured. The area was then packed with sterile gauze. Sterile dressings were applied. COMPLICATIONS: None. DISPOSITION: The patient was taken to recovery in satisfactory condition. <ELECTRONICALLY SIGNED> By: Chapo Galeas MD 09/18/19 0636 1248 1301 Chapo Galeas MD /nt
== END 2019-09-06 17:28 | disposition home or self-care (01) | DRG 853 ==
LOC: ER 11:55 → 3W 19:03 → ICU 19:03 → 2N 08-31 08:08
PROVIDERS: Emergency Medicine; Internal Medicine; Internal Medicine Hematology & Oncology; Nurse Practitioner Family; ADMIT Hospitalist; ATTEND Hospitalist
DX: A41.89 Other specified sepsis (principal); E43 Unspecified severe protein-calorie malnutrition; L02.214 Cutaneous abscess of groin; I31.4 Cardiac tamponade; D68.9 Coagulation defect, unspecified; L02.416 Cutaneous abscess of left lower limb; L02.415 Cutaneous abscess of right lower limb; E11.9 Type 2 diabetes mellitus without complications; E88.09 Other disorders of plasma-protein metabolism, not elsewhere classified; D50.9 Iron deficiency anemia, unspecified; S30.1XXA Contusion of abdominal wall, initial encounter; S30.0XXA Contusion of lower back and pelvis, initial encounter; K76.0 Fatty (change of) liver, not elsewhere classified; Z20.828 Contact with and (suspected) exposure to other viral communicable diseases; B95.61 Methicillin susceptible Staphylococcus aureus infection as the cause of diseases classified elsewhere; I78.0 Hereditary hemorrhagic telangiectasia; M25.48 Effusion, other site; I95.9 Hypotension, unspecified; D18.09 Hemangioma of other sites; S70.11XA Contusion of right thigh, initial encounter; X58.XXXA Exposure to other specified factors, initial encounter; Y93.89 Activity, other specified; Y92.89 Other specified places as the place of occurrence of the external cause; Y99.8 Other external cause status; Z79.899 Other long term (current) drug therapy
CPT/HCPCS: 10078; 10081; 10203; 10779; 27000; 50010; 50101; 50386; 57092; 62110; 62900; 70005

== ENCOUNTER → 2019-09-07 | Outpatient (CLI) | payer OTHER ==
[~2019-09-07] MED LIST: CEFAZOLIN2 GM/100 M IV; CUBICIN500 MG IVPB; TIZANIDINE4 MG/1 TA1 PO; TRAMADOL 50 MG50 MG PO
[2019-09-07 15:24] VITALS: BP 113/53
== END ==
LOC: OPONC 08:24
PROVIDERS: ATTEND Specialist
DX: N73.9 Female pelvic inflammatory disease, unspecified (principal); R78.81 Bacteremia
CPT/HCPCS: 95000

== ENCOUNTER → 2019-09-08 | Outpatient (CLI) | payer OTHER ==
--- NOTE | 2019-09-08 11:47 | NUR ---
WOUND CARE NOTE; PT SEEN IN OUTPT INFUSION FOR WOUND CARE, ALERT, COOPERATIVE, SON W/ PT,MILD PAIN NOTED W/ WOUND CARE, ADVISED TO TAKE PAIN MED PRIOR TO DRSG CHANGE, WOUND HEALING, RED BEEFY TISSUE NOTED, SEROUS RED DRAINAGE PRESENT, DRSG WAS STILL INTACT, SEE PROCESS INTERVENTION FOR WOUND DETAILS, CLEANSED W/ NS AND REPACED W/ 1 INCH IODOFORM GAUZE PACKING STRIP, ABD PAD COVERING, TAPED SECURELY, HAS SUPPLIES, PT AND SON AWARE TO GO ER OVER WEEKEND FOR WOUND CARE AND INFUSION RECOMMENDATIONS CONT WOUND CARE DIRECTED, WILL FOLLOW PRN OUTPT NEEDED CLINIC RN AWARE
[2019-09-08 12:03] VITALS: BP 86/46
--- NOTE | 2019-09-08 12:07 | NUR ---
IN FOR DAILY DAPTOMYCIN INFUSION FOR RT GROIN INFECTED HEMATOMA AND SEPSIS. STATED FEELING OK. PATIENT'S SON CANDACE WITH PATIENT AND HELPED WITH INTERPRETATION PATIENT DOES NOT SPEAK ECUADOREAN AND IS ROMANIAN SPEAKING ONLY. TOLERATED INFUSION WITHOUT INCIDENT. JESUS FROM WOUND CARE CHANGED RT GROIN DRESSING. WOUND HEALING NICELY. WEEKEND INSTRUCTIONS GIVEN TO CANDACE WHOM STATED UNDERSTANDING. DISMISSED IN STABLE CONDITION.
== END ==
LOC: OPONC 10:20
PROVIDERS: ATTEND Specialist
DX: N73.9 Female pelvic inflammatory disease, unspecified (principal); R78.81 Bacteremia
CPT/HCPCS: 95000

== ENCOUNTER → 2019-09-09 | Outpatient (CLI) | payer OTHER | LOC: OPONC 08:00 → EDSTATUS 09:57 → OPONC 09:58 → EDSTATUS 10:28 → OPONC 10:32 | PROVIDERS: ATTEND Specialist | DX: T81.41XA Infection following a procedure, superficial incisional surgical site, initial encounter (principal); T81.44XA Sepsis following a procedure, initial encounter; N73.8 Other specified female pelvic inflammatory diseases; Y83.8 Other surgical procedures as the cause of abnormal reaction of the patient, or of later complication, without mention of misadventure at the time of the procedure; Y92.89 Other specified places as the place of occurrence of the external cause | CPT/HCPCS: 95000 ==

== ENCOUNTER → 2019-09-10 | Outpatient (CLI) | payer OTHER | LOC: OPONC 08:00 → EDSTATUS 10:33 → OPONC 10:34 | PROVIDERS: ATTEND Specialist | DX: T81.41XD Infection following a procedure, superficial incisional surgical site, subsequent encounter (principal); T81.44XD Sepsis following a procedure, subsequent encounter; N73.8 Other specified female pelvic inflammatory diseases; Y83.8 Other surgical procedures as the cause of abnormal reaction of the patient, or of later complication, without mention of misadventure at the time of the procedure | CPT/HCPCS: 95000 ==

== ENCOUNTER → 2019-09-11 | Outpatient (CLI) | payer OTHER | LOC: OPONC 08:00 | PROVIDERS: ATTEND Specialist | DX: T81.41XD Infection following a procedure, superficial incisional surgical site, subsequent encounter (principal); T81.44XD Sepsis following a procedure, subsequent encounter; N73.8 Other specified female pelvic inflammatory diseases; Y83.8 Other surgical procedures as the cause of abnormal reaction of the patient, or of later complication, without mention of misadventure at the time of the procedure | CPT/HCPCS: 95000 ==

== ENCOUNTER → 2019-09-12 | Outpatient (CLI) | payer OTHER ==
--- NOTE | 2019-09-12 11:23 | NUR ---
WOUND CARE NOTE; PT SEEN IN OUTPT INFUSION CLINIC FOR WOUND CARE TO R GROIN, SON W/ PT, STATES SOME PAIN BUT LESSEN, WOUND BEEFY RED, SEROUS PINKISH/RED DRAINAGE, SLIGHT PERIWOUND REDDNESS,WOUND MEASURES 1CM L X 3.5CM W X .9CM D, SKIN PREP APPLIED NO S/S INFECTION, NO ODOR, COOPERATIVE, CLEANSED W/ NS, PACKED W. 1/2 INCH IODOFORM PACKING STRIP, COVERED W/ DRY GAUZE, ABD PAD, TAPED SECURELY RECOMMENDATIONS; CONT DAILY WOUND CARE PER DR ORDERS W/ IODOFORM PACKING STRIP
[2019-09-12 12:07] LABS: HEMATOCRIT 28.4 % (37.0-47.0); HEMOGLOBIN 9.3 gm/dL (12.0-15.0); MCHC 32.8 g/dL (28.0-37.0); MCV 82.2 fL (80.0-100.0); RBC 3.45 mil/uL (4.20-5.00); RDW 19.4 % (10.5-14.5)
[2019-09-12 12:26] LABS: ALBUMIN 2.6 g/dL (3.4-5.0); CALCIUM 8.7 mg/dL (8.5-10.1); CREATININE 0.7 mg/dL (0.6-1.0); POTASSIUM 4.3 mmol/L (3.5-5.1); TOTAL BILIRUBIN 0.4 mg/dL (0.2-1.0); TOTAL PROTEIN 7.3 g/dL (6.4-8.2)
--- NOTE | 2019-09-12 14:45 | NUR ---
IN FOR DAILY DAPTOMYCIN INFUSION FOR RT GROIN HEMATOMA INFECTION AND SEPSIS. JESUS FROM WOUND CARE CHANGED GROIN DRESSING. TOLERATED INFUSION WITHOUT INCIDENT. YAEL LABS FROM PICC LINE WITHOUT DIFFICULTY. PICC DRESSING CHANGED. SITE WNL. KAYLAN RODRIGUEZ WITH PATIENT. DISMISSED IN STABLE CONDITION.
== END ==
LOC: OPONC 09:56
PROVIDERS: ATTEND Specialist
DX: T81.41XD Infection following a procedure, superficial incisional surgical site, subsequent encounter (principal); T81.44XD Sepsis following a procedure, subsequent encounter; N73.8 Other specified female pelvic inflammatory diseases; Y83.8 Other surgical procedures as the cause of abnormal reaction of the patient, or of later complication, without mention of misadventure at the time of the procedure
CPT/HCPCS: 95000

== ENCOUNTER → 2019-09-14 | Outpatient (CLI) | payer OTHER ==
[2019-09-14 12:24] VITALS: BP 124/54
--- NOTE | 2019-09-14 12:28 | NUR ---
IN FOR DAILY DAPTOMYCIN INFUSION. STATED FEELING WELL. DENIED PAIN. WOUND TO RT GROIN HEALING WELL. MINIMAL DRAINAGE. TOLERATED INFUSION WITHOUT INCIDENT. DR. BROWER VISITED. NEW ORDERS RECEIVED. PICC SITE WNL WITH GOOD BLOOD RETURN. PLAN IS TO CONTINUE THE SAME FOR ANOTHER WEEK. DISMISSED IN STABLE CONDITION.
--- NOTE | 2019-09-15 09:11 | NUR ---
WOUND CARE NOTE, LATE ENTRY; PT SEEN IN OUTPT INFUSION FOR R GROIN WOUND, WOUND HEALING, LESS DRAINAGE,PINK VIABLE TISSUE PRESENT, NO ODOR NO FEVER, WAITING OVER ONE HOUR FOR DR TYREL BROWER TO ARRIVE, SUGGEST TO CONT AQUACEL AG TO WOUND BED, COVER W/ BORDER FOAM DRSG, CLINIC RN STEFFEN TO DRESS WOUND AFTER VIEWED BY DR BROWER
== END ==
LOC: OPONC 10:15
PROVIDERS: ATTEND Specialist
DX: T81.41XD Infection following a procedure, superficial incisional surgical site, subsequent encounter (principal); T81.44XD Sepsis following a procedure, subsequent encounter; N73.8 Other specified female pelvic inflammatory diseases; Y83.8 Other surgical procedures as the cause of abnormal reaction of the patient, or of later complication, without mention of misadventure at the time of the procedure
CPT/HCPCS: 95000

== ENCOUNTER → 2019-09-16 | Outpatient (CLI) | payer SELFPAY | LOC: OPONC 09:00 | PROVIDERS: ATTEND Specialist | DX: T81.41XD Infection following a procedure, superficial incisional surgical site, subsequent encounter (principal); T81.44XD Sepsis following a procedure, subsequent encounter; N73.8 Other specified female pelvic inflammatory diseases; Y83.8 Other surgical procedures as the cause of abnormal reaction of the patient, or of later complication, without mention of misadventure at the time of the procedure | CPT/HCPCS: 95000 ==

== ENCOUNTER → 2019-09-17 | Outpatient (CLI) | payer SELFPAY | LOC: OPONC 09:00 | PROVIDERS: ATTEND Specialist | DX: T81.41XD Infection following a procedure, superficial incisional surgical site, subsequent encounter (principal); T81.44XD Sepsis following a procedure, subsequent encounter; N73.8 Other specified female pelvic inflammatory diseases; Y83.8 Other surgical procedures as the cause of abnormal reaction of the patient, or of later complication, without mention of misadventure at the time of the procedure | CPT/HCPCS: 95000 ==

== ENCOUNTER → 2019-09-18 | Outpatient (CLI) | payer SELFPAY | LOC: OPONC 09:00 | PROVIDERS: ATTEND Specialist | DX: T81.41XD Infection following a procedure, superficial incisional surgical site, subsequent encounter (principal); T81.44XD Sepsis following a procedure, subsequent encounter; N73.8 Other specified female pelvic inflammatory diseases; Y83.8 Other surgical procedures as the cause of abnormal reaction of the patient, or of later complication, without mention of misadventure at the time of the procedure | CPT/HCPCS: 95000 ==

== ENCOUNTER → 2019-09-19 | Outpatient (CLI) | payer OTHER ==
--- NOTE | 2019-09-19 11:27 | NUR ---
WOUND CARE NOTE; PT SEEN IN OUTPT INFUSION CLINIC, SON W/ PT, PT ALERT AND COOPERATIVE, DENIES PAIN, WOUND HEALING, 1CM L X 2.2 CM W X .3 CM DEPTH, BEEFY RED TISSUE, SCANT DRAINAGE, NO S/S INFECTION, NO ODOR RECOMMENDATIONS; CLEANSE W/ NS, PACK W/ AQUACEL AG, COVER W/ BORDER FOAM DRSG DAILY
[2019-09-19 12:07] LABS: HEMATOCRIT 26.9 % (37.0-47.0); HEMOGLOBIN 8.8 gm/dL (12.0-15.0); MCH 26.9 pg (26.0-34.0); MCHC 32.5 g/dL (28.0-37.0); MCV 82.8 fL (80.0-100.0); RBC 3.25 mil/uL (4.20-5.00); RDW 19.3 % (10.5-14.5); WBC 4.5 thou/uL (4.0-11.0)
[2019-09-19 12:32] LABS: ALBUMIN 2.8 g/dL (3.4-5.0); CALCIUM 8.5 mg/dL (8.5-10.1); CREATININE 0.6 mg/dL (0.6-1.0); POTASSIUM 3.8 mmol/L (3.5-5.1); TOTAL BILIRUBIN 0.3 mg/dL (0.2-1.0); TOTAL PROTEIN 7.6 g/dL (6.4-8.2)
[2019-09-19 14:57] VITALS: BP 14/48
--- NOTE | 2019-09-19 15:00 | NUR ---
IN FOR DAILY DAPTOMYCIN INFUSION. KAYLAN RODRIGUEZ BROUGHT PATIENT TO CLINIC. JESUS GIBSON CHANGED GROIN DRESSING. WOUND HEALING. PINK GRANULATION TISSUE NOTED. LABS DRAWN FROM PICC LINE WITHOUT DIFFICULTY. TOLERATED THE INFUSION WITHOUT INCIDENT. TO SEE DR. BROWER HERE ON WEDNESDAY. LAB RESULTS FAXED TO DR. BROWER'S OFFICE. PATIENT ABLE TO AMBULATE NOW WITH MINIMAL PAIN. DISMSSED IN STABLE CONDITION.
== END ==
LOC: OPONC 09:41
PROVIDERS: ATTEND Specialist
DX: A41.9 Sepsis, unspecified organism (principal)
CPT/HCPCS: 95000

== ENCOUNTER → 2019-09-20 | Outpatient (CLI) | payer SELFPAY ==
--- NOTE | 2019-09-20 11:35 | NUR ---
WOUND CARE NOTE; PT SEEN IN ER FOR WOUND CARE OUTPT INFUSION CLINIC CLOSED TODAY, SON W/ PT, WOUND HEALING, BEEFY RED VIABLE TISSUE, SCANT DRAINAGE, NO ODOR, NO S/S INFECTION, WOUND R GROIN MEASURES .7CM L X 2 CM W X .3CM D RECOMMENDATIONS; CONT WOUND CARE PER ORDERS DR MONROY, CLEANSE W/ NS, PACK W/ AQUACEL AG, COVER W/ BORDER FOAM TOMY SUPERVISOR FUR DRESSING AWARE
== END ==
LOC: OPONC 09:00 → EDSTATUS 15:39 → OPONC 15:45
PROVIDERS: ATTEND Specialist
DX: T81.41XD Infection following a procedure, superficial incisional surgical site, subsequent encounter (principal); T81.44XD Sepsis following a procedure, subsequent encounter; N73.8 Other specified female pelvic inflammatory diseases; Y83.8 Other surgical procedures as the cause of abnormal reaction of the patient, or of later complication, without mention of misadventure at the time of the procedure
CPT/HCPCS: 95000

== ENCOUNTER → 2019-09-21 | Outpatient (CLI) | payer SELFPAY ==
[2019-09-21 12:25] VITALS: BP 124/57
--- NOTE | 2019-09-21 12:36 | NUR ---
WOUND CARE F/U; THE PATIENT IS HERE TODAY TO SEE DR. BROWER AND GET IV ANTIBIOTICS WELL A DRESSING CHANGED TO HER RIGHT GROIN. THE PATIENTS SON IS PRESENT IN THE ROOM AT ALL TIMES. tHE WOUND HAS MARKEDLY IMPROVED. THE WOUND IS APPROX. 2.5 X 0.5 X 0.4 CM. THERE IS NO S/S OF INFECTION. BEEFY RED TISSUE IS PRESENT IN THE WOUND BED WITH GRANULATION BUDS VISABLE. RECOMMENDATION; CONTINUE DRESSING CHANGES UNTIL IV ANTIBIOTICS REGIMEN IS COMPLETE. DISCUSSED WITH DR BROWER, THE RN AND THE PATIENT AND HER SON.
--- NOTE | 2019-09-21 15:44 | NUR ---
IN FOR DAILY DAPTOMYCIN INFUSION. PATIENT HAD CT ABD/PELVIS DONE BEFORE COMING TO CLINIC. PATIENT DENIED PAIN, DIARRHEA, FEVER, CHILLS. TOLERATED INFUSION WITHOUT INCIDENT. WOUND CARE CHANGED DRESSING TO RT GROIN. WOUND HEALING NICELY. PICC DRESSING CHANGED. DR. BROWER VISITED AND PLAN IS TO CONTINUE THE SAME FOR ANOTHER WEEK. FAXED RESULTS OF CT SCAN TO DR. BROWER. TO RETURN TOMORROW FOR NEXTINFUSION. DISMISSED IN STABLE CONDITION.
== END ==
LOC: CAT 08:58 → OPONC 15:17
PROVIDERS: ATTEND Specialist
DX: A41.9 Sepsis, unspecified organism (principal); M79.81 Nontraumatic hematoma of soft tissue
CPT/HCPCS: 95000

== ENCOUNTER → 2019-09-22 | Outpatient (CLI) | payer SELFPAY ==
--- NOTE | 2019-09-22 11:30 | NUR ---
WOUND CARE NOTE; PT SEEN IN OUTPT INFUSION FOR WOUND CARE TO R GROIN, WOUND HEALING, LESS PERIWOUND REDDNESS, LESS DRAINAGE, NO ODOR, MEASURES .5CM L X 2.3CM WIDTH X.3CMD, BEEFY RED VIABLE TISSUE, HEALING, SON W/ PT RECOMMENDATIONS CONT POC OF R GROIN WOUND W/ AQUACEL AG, COVER W/ BORDER FOAM DRSG DAILY WAITER/WAITRESS CLUB AND PT, SON AWARE
[2019-09-22 12:35] VITALS: BP 104/53
--- NOTE | 2019-09-22 12:38 | NUR ---
IN FOR DAILY DAPTOMYCIN INFUSION. STATED FEELING WELL. DENIED PAIN, NAUSEA, MUSCLE WEAKNESS, FEVER, CHILLS. PICC SITE LOOKS GOOD. TOLERATED INFUSION WITHOUT INCIDENT. TO GO TO ED FOR WEEKEND INFUSIONS. DISMISSED IN STABLE CONDITION.
== END ==
LOC: OPONC 09:52
PROVIDERS: ATTEND Specialist
DX: A41.9 Sepsis, unspecified organism (principal); M79.81 Nontraumatic hematoma of soft tissue
CPT/HCPCS: 95000

== ENCOUNTER → 2019-09-24 | Outpatient (CLI) | payer SELFPAY | LOC: OPONC 10:47 | PROVIDERS: ATTEND Specialist | DX: A41.9 Sepsis, unspecified organism (principal); M79.81 Nontraumatic hematoma of soft tissue | CPT/HCPCS: 95000 ==

== ENCOUNTER → 2019-09-25 | Outpatient (CLI) | payer OTHER | LOC: HYPER 13:52 | PROVIDERS: ATTEND Emergency Medicine | DX: T81.31XA Disruption of external operation (surgical) wound, not elsewhere classified, initial encounter (principal); E11.622 Type 2 diabetes mellitus with other skin ulcer; L98.491 Non-pressure chronic ulcer of skin of other sites limited to breakdown of skin; A41.01 Sepsis due to Methicillin susceptible Staphylococcus aureus; D68.8 Other specified coagulation defects; E43 Unspecified severe protein-calorie malnutrition; I78.0 Hereditary hemorrhagic telangiectasia; Z79.4 Long term (current) use of insulin; Y92.238 Other place in hospital as the place of occurrence of the external cause; Y83.8 Other surgical procedures as the cause of abnormal reaction of the patient, or of later complication, without mention of misadventure at the time of the procedure ==

== ENCOUNTER → 2019-09-25 | Outpatient (CLI) | payer SELFPAY | LOC: OPONC 11:00 | PROVIDERS: ATTEND Specialist | DX: A41.9 Sepsis, unspecified organism (principal); M79.81 Nontraumatic hematoma of soft tissue | CPT/HCPCS: 95000 ==

== ENCOUNTER → 2019-09-26 | Outpatient (CLI) | payer SELFPAY ==
--- NOTE | 2019-09-26 11:27 | NUR ---
WOUND CARE NOTE; PT SAW DR MARIEL VERMA YESTERDAY IN WOUND CLINIC, DRSG CHANGED TO 3X WEEK NOW, PER DR SALAMANCA W/ AQUACEL AG TO WOUND AND COVER W/ BORDER FOAM, DONE TODAY PER ORDERS, WOUND HEALING, NO S/S INFECTION, WOUND R GROIN MEASURES .4 CM LENGTH,X 2.0CM WIDTH,X .2CM DEPTH, COOPERATIVE, SON W/ PT, CONTS ON IV ANTIBIOTICS, TO RETURN TO OUTPT INFUSION FOR WOUND ON 09/27 FOR WOUND CARE TO AND TO SEE DR TYREL BROWER RECOMMENDATIONS CONT WOUND CARE PER ORDERS OF DR VERMA
[2019-09-26 11:40] VITALS: BP 96/51
--- NOTE | 2019-09-26 12:05 | NUR ---
HERE FOR DAILY IV DAPTOMYCIN INFUSION. REPORTS DOING WELL PER SON, NO N/V, DIARRHEA, PAIN, WEAKNESS OR OTHER CONCERNS NOTED. WOUND CARE PERFORMED BY WOUND NURSE. PICC PATENT, BLOOD DRAWN TODAY PER PICC, EXCELLENT BLOOD RETURN. TOLERATED DAPTOMYCIN INFUSION WITHOUT INCIDENT. DISMISSED IN STABLE CONDITION.
[2019-09-26 12:21] LABS: ABSOLUTE NEUTROPHILS 4.1 thou/uL (1.4-8.2); BASOPHILS 1.1 % (0.0-2.0); EOSINOPHILS 4.1 % (0.0-3.0); HEMATOCRIT 26.5 % (37.0-47.0); HEMOGLOBIN 8.6 gm/dL (12.0-15.0); LYMPHOCYTES 11.9 % (24.0-44.0); MCH 27.2 pg (26.0-34.0); MCHC 32.6 g/dL (28.0-37.0); MCV 83.5 fL (80.0-100.0); MONOCYTES 8.3 % (1.0-8.0); PLATELET COUNT 288 thou/uL (150-400); POLYS 74.6 % (36.0-66.0); RBC 3.18 mil/uL (4.20-5.00); RDW 19.6 % (10.5-14.5); WBC 5.5 thou/uL (4.0-11.0)
[2019-09-26 12:41] LABS: ALBUMIN 3.1 g/dL (3.4-5.0); CALCIUM 8.4 mg/dL (8.5-10.1); CREATININE 0.5 mg/dL (0.6-1.0); POTASSIUM 3.2 mmol/L (3.5-5.1); TOTAL BILIRUBIN 0.3 mg/dL (0.2-1.0); TOTAL PROTEIN 7.5 g/dL (6.4-8.2)
[2019-09-26 12:51] LABS: ANISOCYTOSIS 2+; PLATELET ESTIMATE NORMAL
== END ==
LOC: OPONC 08:20
PROVIDERS: ATTEND Specialist
DX: A41.9 Sepsis, unspecified organism (principal); M79.81 Nontraumatic hematoma of soft tissue
CPT/HCPCS: 95000

== ENCOUNTER → 2019-09-27 | Outpatient (CLI) | payer SELFPAY | LOC: OPONC 08:00 | PROVIDERS: ATTEND Specialist | DX: T81.41XD Infection following a procedure, superficial incisional surgical site, subsequent encounter (principal); T81.44XD Sepsis following a procedure, subsequent encounter; N73.8 Other specified female pelvic inflammatory diseases; Y83.8 Other surgical procedures as the cause of abnormal reaction of the patient, or of later complication, without mention of misadventure at the time of the procedure | CPT/HCPCS: 95000 ==

== ENCOUNTER → 2019-09-28 | Outpatient (CLI) | payer SELFPAY | LOC: OPONC 08:27 | DX: T81.41XD Infection following a procedure, superficial incisional surgical site, subsequent encounter (principal); N73.8 Other specified female pelvic inflammatory diseases; Y83.8 Other surgical procedures as the cause of abnormal reaction of the patient, or of later complication, without mention of misadventure at the time of the procedure ==

== ENCOUNTER → 2019-09-30 | Outpatient (CLI) | payer SELFPAY | LOC: OPONC 11:00 | PROVIDERS: ATTEND Specialist | DX: A41.9 Sepsis, unspecified organism (principal); M79.81 Nontraumatic hematoma of soft tissue | CPT/HCPCS: 95000 ==

== ENCOUNTER → 2019-10-01 | Outpatient (CLI) | payer SELFPAY | LOC: OPONC 11:00 | PROVIDERS: ATTEND Specialist | DX: T81.41XD Infection following a procedure, superficial incisional surgical site, subsequent encounter (principal); T81.44XD Sepsis following a procedure, subsequent encounter; N73.8 Other specified female pelvic inflammatory diseases; Y83.8 Other surgical procedures as the cause of abnormal reaction of the patient, or of later complication, without mention of misadventure at the time of the procedure | CPT/HCPCS: 95000 ==

== ENCOUNTER → 2019-10-02 | Outpatient (CLI) | payer SELFPAY | LOC: OPONC 11:00 | PROVIDERS: ATTEND Specialist | DX: T81.41XD Infection following a procedure, superficial incisional surgical site, subsequent encounter (principal); T81.44XD Sepsis following a procedure, subsequent encounter; N73.8 Other specified female pelvic inflammatory diseases; Y83.8 Other surgical procedures as the cause of abnormal reaction of the patient, or of later complication, without mention of misadventure at the time of the procedure | CPT/HCPCS: 95000 ==

== ENCOUNTER → 2019-10-03 | Outpatient (CLI) | payer SELFPAY ==
[2019-10-03 12:42] VITALS: BP 101/48
--- NOTE | 2019-10-03 12:47 | NUR ---
IN FOR DAILY DAPTOMYCIN INFUSION. STATED FEELING WELL. DENIED PAIN, NAUSEA, FEVER, CHILLS, DIARRHEA. PICC SITE WNL. TOLERATED INFUSION WITHOUT INCIDENT. CALLED DR. CASTILLO'S OFFICE TO FOLLOWUP ON CONSULT FROM LAST WEDNESDAY. LEFT MESSAGE. PATIENT DISMISSED IN STABLE CONDITION.
== END ==
LOC: OPONC 08:28
PROVIDERS: ATTEND Specialist
DX: T81.41XD Infection following a procedure, superficial incisional surgical site, subsequent encounter (principal); T81.44XD Sepsis following a procedure, subsequent encounter; N73.8 Other specified female pelvic inflammatory diseases; Y83.8 Other surgical procedures as the cause of abnormal reaction of the patient, or of later complication, without mention of misadventure at the time of the procedure
CPT/HCPCS: 95000

== ENCOUNTER → 2019-10-04 | Outpatient (CLI) | payer SELFPAY | LOC: OPONC 10:00 | PROVIDERS: ATTEND Specialist | DX: A41.9 Sepsis, unspecified organism (principal); M79.81 Nontraumatic hematoma of soft tissue | CPT/HCPCS: 95000 ==

== ENCOUNTER → 2019-10-05 | Outpatient (CLI) | payer SELFPAY ==
[2019-10-05 11:43] VITALS: BP 98/45
--- NOTE | 2019-10-05 12:21 | NUR ---
IN FOR DAILY DAPTOMYCIN INFUSION. STATED FEELING WELL. DENIED NAUSEA, PAIN, FEVER, CHILLS, DIARRHEA. YAEL LABS FROM PICC LINE WITHOUT DIFFICULTY. TOLERATED INFUSION WITHOUT INCIDENT. CHANGED DRESSING TO RT GROIN. SMALL OPEN AREA PINK, MOIST WITH MINIMAL SEROSANGUINOUS DRAINAGE. CLEANED WITH WOUND CLEANSER, [employer] AG AND COVERED WITH BORDER FOAM. DISMISSED IN STABLE CONDITION.
[2019-10-05 13:09] LABS: HEMATOCRIT 26.3 % (37.0-47.0); HEMOGLOBIN 8.6 gm/dL (12.0-15.0); MCHC 32.5 g/dL (28.0-37.0); MCV 85.9 fL (80.0-100.0); RBC 3.06 mil/uL (4.20-5.00); RDW 19.5 % (10.5-14.5); WBC 4.5 thou/uL (4.0-11.0)
[2019-10-05 13:46] LABS: ALBUMIN 3.2 g/dL (3.4-5.0); CALCIUM 8.3 mg/dL (8.5-10.1); CREATININE 0.5 mg/dL (0.6-1.0); POTASSIUM 3.6 mmol/L (3.5-5.1); TOTAL BILIRUBIN 0.2 mg/dL (0.2-1.0); TOTAL PROTEIN 7.4 g/dL (6.4-8.2)
== END ==
LOC: OPONC 09:13
PROVIDERS: ATTEND Specialist
DX: A41.9 Sepsis, unspecified organism (principal); M79.81 Nontraumatic hematoma of soft tissue
CPT/HCPCS: 95000

== ENCOUNTER → 2019-10-06 | Outpatient (CLI) | payer SELFPAY ==
--- NOTE | 2019-10-05 16:51 | NUR ---
rec call from outpatient gelatin dynamite packing operator Judy. [facility] requested to assist patient with outpatient ortho consult for infected pelvic bone. Request to inquire into [facility]. Sp with [facility] who reports need to sp with fitemo first. Sp with Van who reports at each visit need to pay $100 up front. That is to sp with phys only no testing or procedure. non urgent procedure requires 30% up front. You can have urgent sx life/ with no up front payment. Van advises patient to possible inquire with [facility] [place]. Sp with dtr and discussed. She was unaware of need for consult. Discussed infection and need for ortho consult. Alerted to dtr she needs to call [facility] herself [phone]. Sp with Dr Samuel and updated. Dtr plans to take patient to next outpatient infusion apt to sp with phys.
[2019-10-06 12:28] VITALS: BP 100/48
[2019-10-06 16:09] VITALS: BP 100/48
--- NOTE | 2019-10-06 16:13 | NUR ---
IN FOR DAILY DAPTOMYCIN INFUSION. DENIED PAIN, NAUSEA, DIARRHEA, FEVER, CHILLS. TOLERATED INFUSION WITHOUT INCIDENT. DR. BROWER VISITED. TO CONTINUE THE SAME FOR ANOTHER WEEK. SHILO WITH CASE MANAGEMENT IS HELPING PATIENT TO GET INTO THE ORTHOPEDIC CLINIC AT [facility] FOR THE ORTHOPEDIC CONSULT. DR. BROWER SPOKE WITH YORDY FERREIRA REGARDING THE CT SCAN RESULTS AND PLAN OF CARE. DISMISSED IN STABLE CONDITION.
== END ==
LOC: OPONC 07:58
PROVIDERS: ATTEND Specialist
DX: R78.81 Bacteremia (principal)
CPT/HCPCS: 95000

== ENCOUNTER → 2019-10-07 | Outpatient (CLI) | payer SELFPAY | LOC: OPONC 09:30 | PROVIDERS: ATTEND Specialist | DX: A41.9 Sepsis, unspecified organism (principal); M79.81 Nontraumatic hematoma of soft tissue | CPT/HCPCS: 95000 ==

== ENCOUNTER → 2019-10-08 | Outpatient (CLI) | payer SELFPAY | LOC: OPONC 09:30 | PROVIDERS: ATTEND Specialist | DX: A41.9 Sepsis, unspecified organism (principal); M79.81 Nontraumatic hematoma of soft tissue | CPT/HCPCS: 95000 ==

== ENCOUNTER → 2019-10-09 | Outpatient (CLI) | payer SELFPAY | LOC: OPONC 11:00 | PROVIDERS: ATTEND Specialist | DX: A41.9 Sepsis, unspecified organism (principal); M79.81 Nontraumatic hematoma of soft tissue | CPT/HCPCS: 95000 ==

== ENCOUNTER → 2019-10-10 | Outpatient (CLI) | payer SELFPAY ==
[2019-10-10 12:28] VITALS: BP 108/40
--- NOTE | 2019-10-10 12:32 | NUR ---
IN FOR DAILY DAPTOMYCIN INFUSION. STATED FEELING WELL. DENIED PAIN, NAUSEA, FEVER, CHILLS, DIARRHEA, MUSCLE WEAKNESS. TOLERATED INFUSION WITHOUT INCIDENT. CHANGED PICC DRESSING. SITE WNL. DISMISSED IN STABLE CONDITION.
== END ==
LOC: OPONC 08:46
PROVIDERS: ATTEND Specialist
DX: A41.9 Sepsis, unspecified organism (principal); M79.81 Nontraumatic hematoma of soft tissue
CPT/HCPCS: 95000

== ENCOUNTER → 2019-10-11 | Outpatient (CLI) | payer SELFPAY | LOC: OPONC 11:00 | PROVIDERS: ATTEND Specialist | DX: M79.81 Nontraumatic hematoma of soft tissue (principal); L76.32 Postprocedural hematoma of skin and subcutaneous tissue following other procedure; R78.81 Bacteremia | CPT/HCPCS: 95000 ==

== ENCOUNTER → 2019-10-12 | Outpatient (CLI) | payer SELFPAY ==
[2019-10-12 11:35] VITALS: BP 99/36
[2019-10-12 11:46] LABS: HEMATOCRIT 29.9 % (37.0-47.0); HEMOGLOBIN 9.7 gm/dL (12.0-15.0); MCH 27.7 pg (26.0-34.0); MCHC 32.4 g/dL (28.0-37.0); MCV 85.7 fL (80.0-100.0); RBC 3.49 mil/uL (4.20-5.00); RDW 18.6 % (10.5-14.5); WBC 4.7 thou/uL (4.0-11.0)
[2019-10-12 12:03] LABS: ALBUMIN 3.5 g/dL (3.4-5.0); CALCIUM 8.4 mg/dL (8.5-10.1); CREATININE 0.6 mg/dL (0.6-1.0); POTASSIUM 3.5 mmol/L (3.5-5.1); TOTAL BILIRUBIN 0.3 mg/dL (0.2-1.0); TOTAL PROTEIN 7.6 g/dL (6.4-8.2)
--- NOTE | 2019-10-12 13:19 | NUR ---
IN FOR DAILY DAPTOMYCIN INFUSION. WEEKLY LABS DRAWN FROM PICC LINE WITHOUT DIFFICULTY. PICC SITE WNL. TOLERATED INFUSION WITHOUT INCIDENT. DENIED PAIN, NAUSEA, DIARRHEA, FEVER, CHILLS, MUSCLE WEAKNESS. DISMISSED IN STABLE CONDITION.
== END ==
LOC: OPONC 10:06
PROVIDERS: ATTEND Specialist
DX: M79.81 Nontraumatic hematoma of soft tissue (principal); L76.32 Postprocedural hematoma of skin and subcutaneous tissue following other procedure; R78.81 Bacteremia
CPT/HCPCS: 95000

== ENCOUNTER → 2019-10-13 | Outpatient (CLI) | payer SELFPAY ==
--- NOTE | 2019-10-11 18:01 | NUR ---
Attempting to obtain outpatient ortho visit. Sp with [facility] who reports best if patient to rec [place] medicaid to work through [place]. Reviewed with dtr amount needed per [facility] visit. $100 to sp with phys prior to apt and that would not include any treatment or procedures. Sp with dtr and gave phone number for [place] [facility] to call initially prior to making apt. Dtr reports she has called them and they have ortho apt in 3 weeks. Patient needs apt sooner. Sp with [place] orth[facility] clinic, faxed clinical and requested more urgent review. [place] clinic reports they do not have patient in system. THere is no apt arranged. Casemgt to f.u with letty regarding apt.
--- NOTE | 2019-10-12 15:05 | NUR ---
Ice Rink Attendant spoke with [facility] ortho clinic and they did recieve the pt's clinical information;however they can not schedule an appt until the pt has been seen by financial services. Ice Rink Attendant spoke with the pt's dtr Charlotte. She has an appt with financial services on 10/30/19. She has tried to call back today to explain the urgency and requested an appt sooner,but this was not successful as financial services indicates they are very busy. She will attempt to call back to talk with a lace tearing supervisor in that dept to see if there are any other options for getting an appt more quickly. She is keeping a close eye on her mother and will plan to go to [facility] ER should the pt have fever, pain or need emergency care. Pt's [place] been [place]. The pt will not [place] eligible to apply for [place]icaid until next year as she has only been a permanent resident for 4 years. Support provided.
[2019-10-13 12:03] VITALS: BP 104/56
== END ==
LOC: OPONC 08:35
PROVIDERS: ATTEND Specialist
DX: A41.9 Sepsis, unspecified organism (principal); M79.81 Nontraumatic hematoma of soft tissue
CPT/HCPCS: 95000

== ENCOUNTER → 2019-10-14 | Outpatient (CLI) | payer SELFPAY | LOC: OPONC 12:30 | PROVIDERS: ATTEND Specialist | DX: A41.9 Sepsis, unspecified organism (principal); M79.81 Nontraumatic hematoma of soft tissue | CPT/HCPCS: 95000 ==

== ENCOUNTER → 2019-10-15 | Outpatient (CLI) | payer SELFPAY | LOC: OPONC 08:00 | PROVIDERS: ATTEND Specialist | DX: A41.9 Sepsis, unspecified organism (principal); M79.81 Nontraumatic hematoma of soft tissue | CPT/HCPCS: 95000 ==

== ENCOUNTER → 2019-10-16 | Outpatient (CLI) | payer SELFPAY | LOC: OPONC 08:00 | PROVIDERS: ATTEND Specialist | DX: A41.9 Sepsis, unspecified organism (principal); M79.81 Nontraumatic hematoma of soft tissue | CPT/HCPCS: 95000 ==

== ENCOUNTER → 2019-10-17 | Outpatient (CLI) | payer SELFPAY ==
[2019-10-17 12:36] VITALS: BP 119/53
--- NOTE | 2019-10-17 12:51 | NUR ---
IN FOR DAILY DAPTOMYCIN INFUSION. STATED FEELING WELL. TOLERATED INFUSION WITHOUT INCIDENT. PICC SITE WNL. DRESSING CHANGED. DISMISSED IN STABLE CONDITION.
--- NOTE | 2019-10-17 14:10 | NUR ---
CASE MANAGEMENT HAS BEEN WORKING WITH PT TO SEE PHYSICIAN AT [facility] DR NADEEN LI (ORTHO) FAXED REFERRAL H/P, DR. TYREL BROWER'S PROG. NOTE, AND FACE SHEET) RECEIVED CONFIRMATION.
== END ==
LOC: OPONC 08:07
PROVIDERS: ATTEND Specialist
DX: A41.9 Sepsis, unspecified organism (principal); M79.81 Nontraumatic hematoma of soft tissue
CPT/HCPCS: 95000

== ENCOUNTER → 2019-10-18 | Outpatient (CLI) | payer SELFPAY | LOC: OPONC 12:30 | PROVIDERS: ATTEND Specialist | DX: A41.9 Sepsis, unspecified organism (principal); M79.81 Nontraumatic hematoma of soft tissue | CPT/HCPCS: 95000 ==

== ENCOUNTER → 2019-10-19 | Outpatient (CLI) | payer SELFPAY ==
[2019-10-19 08:53] LABS: HEMATOCRIT 29.7 % (37.0-47.0); HEMOGLOBIN 9.5 gm/dL (12.0-15.0); MCH 27.6 pg (26.0-34.0); MCV 86.1 fL (80.0-100.0); RBC 3.45 mil/uL (4.20-5.00); WBC 4.1 thou/uL (4.0-11.0)
[2019-10-19 09:02] VITALS: BP 109/45
--- NOTE | 2019-10-19 09:17 | NUR ---
IN FOR DAILY DAPTOMYCIN INFUSION. DENIED NAUSEA, DIARRHEA, FEVER, CHILLS, PAIN. YAEL LAB FROM PICC LINE WITHOUT DIFFICULTY. TOLERATED INFUSION WITHOUT INCIDENT. CHANGED WOUND DRESSING. WOUND ALMOST HEALED. WILL SEE DR. BROWER HERE TOMORROW AT NOON. DISMISSED IN GOOD CONDITION.
[2019-10-19 09:31] LABS: ALBUMIN 3.4 g/dL (3.4-5.0); CALCIUM 8.6 mg/dL (8.5-10.1); CREATININE 0.7 mg/dL (0.6-1.0); POTASSIUM 3.8 mmol/L (3.5-5.1); TOTAL BILIRUBIN 0.4 mg/dL (0.2-1.0); TOTAL PROTEIN 7.2 g/dL (6.4-8.2)
== END ==
LOC: OPONC 09:14
PROVIDERS: ATTEND Specialist
DX: A41.9 Sepsis, unspecified organism (principal); M79.81 Nontraumatic hematoma of soft tissue
CPT/HCPCS: 95000

== ENCOUNTER → 2019-10-20 | Outpatient (CLI) | payer SELFPAY ==
--- NOTE | 2019-10-19 13:18 | NUR ---
Call back rec'd from pt's dtr Rissa earlier this week and she has been talking with the ortho clinic at [facility]. She requested a referral from Dr. Samuel be faxed to them to facilitate a consultation appt with them. Call back was also rec'd from Reba PUTNAM at [facility] ortho clinic [phone] requesting additional info regarding her referral. Message left for Reba. Pt continues with her daily outpt infusions. Will follow.
[2019-10-20 13:21] VITALS: BP 118/45
--- NOTE | 2019-10-20 16:00 | NUR ---
IN FOR DAILY DAPTOMYCIN INFUSION. STATED FEELING WELL. DENIED PAIN, NAUSEA, DIARRHEA, FEVER, CHILLS. TOLERATED INFUSION WELL WITHOUT INCIDENT. DR. BROWER VISITED. TO CONTINUE THE SAME FOR ONE MORE WEEK. DISMISSED IN GOOD CONDITION.
== END ==
LOC: OPONC 11:56
PROVIDERS: ATTEND Specialist
DX: A41.9 Sepsis, unspecified organism (principal); M79.81 Nontraumatic hematoma of soft tissue
CPT/HCPCS: 95000

== ENCOUNTER → 2019-10-22 | Outpatient (CLI) | payer SELFPAY | LOC: OPONC 12:00 | PROVIDERS: ATTEND Specialist | DX: A41.9 Sepsis, unspecified organism (principal); M79.81 Nontraumatic hematoma of soft tissue | CPT/HCPCS: 95000 ==

== ENCOUNTER → 2019-10-23 | Outpatient (CLI) | payer SELFPAY | LOC: OPONC 12:00 | PROVIDERS: ATTEND Specialist | DX: A41.9 Sepsis, unspecified organism (principal); M79.81 Nontraumatic hematoma of soft tissue | CPT/HCPCS: 95000 ==

== ENCOUNTER → 2019-10-24 | Outpatient (CLI) | payer SELFPAY ==
[2019-10-24 10:41] VITALS: BP 101/47
--- NOTE | 2019-10-24 10:46 | NUR ---
IN FOR DAILY DAPTOMYCIN INFUSION. WOUND TO RT GROIN HEALED. PICC SITE WITHIN NORMAL LIMITS WITH GOOD BLOOD RETURN. TOLERATED INFUSION WITHOUT INCIDENT. DENIED NAUSEA, FEVER, CHILLS, DIARRHEA, PAIN. CHANGED PICC DRESSING. DISMISSED IN STABLE CONDITION.
== END ==
LOC: OPONC 09:05
PROVIDERS: ATTEND Specialist
DX: A41.9 Sepsis, unspecified organism (principal); M79.81 Nontraumatic hematoma of soft tissue
CPT/HCPCS: 95000

== ENCOUNTER → 2019-10-25 | Outpatient (CLI) | payer SELFPAY | LOC: OPONC 08:38 | PROVIDERS: ATTEND Specialist | DX: A41.9 Sepsis, unspecified organism (principal); M79.81 Nontraumatic hematoma of soft tissue | CPT/HCPCS: 95000 ==

== ENCOUNTER → 2019-10-26 | Outpatient (CLI) | payer SELFPAY ==
[2019-10-26 08:56] LABS: ABSOLUTE NEUTROPHILS 2.3 thou/uL (1.4-8.2); BASOPHILS 0.6 % (0.0-2.0); EOSINOPHILS 11.3 % (0.0-3.0); HEMATOCRIT 31.2 % (37.0-47.0); HEMOGLOBIN 10.2 gm/dL (12.0-15.0); LYMPHOCYTES 19.6 % (24.0-44.0); MCH 28.1 pg (26.0-34.0); MCHC 32.7 g/dL (28.0-37.0); MCV 85.9 fL (80.0-100.0); MONOCYTES 6.7 % (1.0-8.0); PLATELET COUNT 233 thou/uL (150-400); POLYS 61.8 % (36.0-66.0); RBC 3.63 mil/uL (4.20-5.00); RDW 16.6 % (10.5-14.5); WBC 3.8 thou/uL (4.0-11.0)
[2019-10-26 09:16] LABS: ALBUMIN 3.5 g/dL (3.4-5.0); CALCIUM 8.3 mg/dL (8.5-10.1); CREATININE 0.5 mg/dL (0.6-1.0); TOTAL BILIRUBIN 0.4 mg/dL (0.2-1.0); TOTAL PROTEIN 7.2 g/dL (6.4-8.2)
[2019-10-26 12:53] VITALS: BP 125/54
--- NOTE | 2019-10-26 13:00 | NUR ---
IN FOR DAILY DAPTOMYCIN INFUSION. STATED FEELING WELL. DENIED PAIN, NAUSEA, FEVER, CHILLS, DIARRHEA. YAEL LABS FROM PICC LINE. TOLERATED INFUSION WITHOUT INCIDENT. WOUND TO RT GROIN HEALED. TO SEE DR. BROWER HERE TOMORROW. DISMISSED IN GOOD CONDITION.
== END ==
LOC: OPONC 12:00
PROVIDERS: ATTEND Specialist
DX: A41.9 Sepsis, unspecified organism (principal); M79.81 Nontraumatic hematoma of soft tissue
CPT/HCPCS: 95000

== ENCOUNTER → 2019-10-27 | Outpatient (CLI) | payer SELFPAY ==
[2019-10-27 15:16] VITALS: BP 110/68
--- NOTE | 2019-10-27 15:22 | NUR ---
IN FOR DAILY DAPTOMYCIN INFUSION. STATED FEELING WELL. DENIED PAIN, NAUSEA, DIARRHEA, FEVER, CHILLS. PICC SITE WNL. TOLERATED INFUSION WELL. DR. BROWER VISITED. PLAN IS TO CONTINUE FOR ANOTHER WEEK IF NEEDED UNTIL PATIENT CAN GET AN APPT AT [place] WITH ORTHOPEDIC SURGEON. DISCUSSED PLAN OF CARE WITH PATIENT AND SPOUSE. STATED UNDERSTANDING. DISMISSED IN STABLE CONDITION.
[2019-10-27 15:26] VITALS: BP 118/85
== END ==
LOC: OPONC 09:00
PROVIDERS: ATTEND Specialist
DX: A41.9 Sepsis, unspecified organism (principal); M79.81 Nontraumatic hematoma of soft tissue
CPT/HCPCS: 95000

== ENCOUNTER → 2019-10-28 | Outpatient (CLI) | payer SELFPAY | LOC: OPONC 10:00 | PROVIDERS: ATTEND Specialist | DX: A41.9 Sepsis, unspecified organism (principal); M79.81 Nontraumatic hematoma of soft tissue | CPT/HCPCS: 95000 ==

== ENCOUNTER → 2019-10-29 | Outpatient (CLI) | payer SELFPAY | LOC: OPONC 07:30 | PROVIDERS: ATTEND Specialist | DX: A41.9 Sepsis, unspecified organism (principal); M79.81 Nontraumatic hematoma of soft tissue | CPT/HCPCS: 95000 ==

== ENCOUNTER → 2019-10-30 | Outpatient (CLI) | payer SELFPAY | LOC: OPONC 08:30 | PROVIDERS: ATTEND Specialist | DX: A41.9 Sepsis, unspecified organism (principal); M79.81 Nontraumatic hematoma of soft tissue | CPT/HCPCS: 95000 ==

== ENCOUNTER → 2019-10-31 | Outpatient (CLI) | payer SELFPAY ==
[2019-10-31 10:42] VITALS: BP 107/54
--- NOTE | 2019-10-31 10:50 | NUR ---
IN FOR DAILY DAPTOMYCIN INFUSION. STATED FEELING WELL. DENIED NAUSEA, FEVER, CHILLS, DIARRHEA, PAIN. WOUND TO RT GROIN IS HEALED. TOLERATED INFUSION WITHOUT INCIDENT. CHANGED PICC DRESSING. SITE WITHIN NORMAL LIMITS. DISMISSED IN GOOD CONDITION.
== END ==
LOC: OPONC 10:53
PROVIDERS: ATTEND Specialist
DX: A41.9 Sepsis, unspecified organism (principal); M79.81 Nontraumatic hematoma of soft tissue
CPT/HCPCS: 95000

== ENCOUNTER → 2019-11-01 | Outpatient (CLI) | payer SELFPAY | LOC: OPONC 08:00 | PROVIDERS: ATTEND Specialist | DX: A41.9 Sepsis, unspecified organism (principal); M79.81 Nontraumatic hematoma of soft tissue | CPT/HCPCS: 95000 ==

== ENCOUNTER → 2019-11-02 | Outpatient (CLI) | payer SELFPAY ==
[2019-11-02 10:11] LABS: ABSOLUTE NEUTROPHILS 2.7 thou/uL (1.4-8.2); BASOPHILS 0.9 % (0.0-2.0); EOSINOPHILS 9.3 % (0.0-3.0); HEMATOCRIT 32.9 % (37.0-47.0); HEMOGLOBIN 10.7 gm/dL (12.0-15.0); LYMPHOCYTES 16.8 % (24.0-44.0); MCH 28.1 pg (26.0-34.0); MCHC 32.5 g/dL (28.0-37.0); MCV 86.5 fL (80.0-100.0); MONOCYTES 6.8 % (1.0-8.0); PLATELET COUNT 233 thou/uL (150-400); POLYS 66.2 % (36.0-66.0); RDW 15.9 % (10.5-14.5); WBC 4.1 thou/uL (4.0-11.0)
[2019-11-02 10:31] LABS: ALBUMIN 3.6 g/dL (3.4-5.0); CALCIUM 8.3 mg/dL (8.5-10.1); CREATININE 0.5 mg/dL (0.6-1.0); TOTAL BILIRUBIN 0.3 mg/dL (0.2-1.0); TOTAL PROTEIN 7.4 g/dL (6.4-8.2)
[2019-11-02 15:22] VITALS: BP 119/59
--- NOTE | 2019-11-02 15:23 | NUR ---
IN FOR DAILY DAPTOMYCIN INFUSION. STATED FEELING WELL. DENIED NAUSEA, FEVER, CHILLS, DIARRHEA AND PAIN. TOLERATED INFUSION WITHOUT INCIDENT. YAEL LAB FROM PICC LINE WITHOUT DIFFICULTY. FAXED LAB RESULTS TO DR. BROWER. TO RETURN TOMORROW FOR THE SAME AND TO SEE DR. BROWER. DISMISSED IN GOOD CONDITION.
== END ==
LOC: OPONC 08:40
PROVIDERS: ATTEND Specialist
DX: A41.9 Sepsis, unspecified organism (principal); M79.81 Nontraumatic hematoma of soft tissue
CPT/HCPCS: 95000

== ENCOUNTER → 2019-11-03 | Outpatient (CLI) | payer SELFPAY ==
--- NOTE | ~2019-11-03 | HC ---
[facility] [place] [address] CONSULTATION Name: SENA CARRASCO Room #: REG [facility].#: [id number] Admission: 11/03/19 Attend Phys: David Samuel MD Discharge: Date of : 60 Report #: [id number] THIS REPORT FOR: cc: David Samuel MD,David Rebolledo MD, MD ~ CC: David Samuel Followup Infectious disease visit outpatient clinic HISTORY OF PRESENT ILLNESS: The patient returns in followup of her methicillin-susceptible Staph aureus bacteremia associated with right groin and pelvic soft tissue hematomas and abscess in the setting of underlying Pcofw-Fmhat-Hpinp syndrome. She has subsequently been found to have a pubic symphysis septic arthritis with associated osteomyelitis on repeat imaging. She has been on antibiotic therapy for 10 weeks, now on daptomycin. She was scheduled to be seen by Orthopedic Surgery at [facility], but Orthopedics did not feel comfortable addressing this issue. She was then referred to [facility] and as of yet no response for evaluation despite multiple attempts by nursing home social worker here and by the family to gain access. She has been afebrile. Pain is now controlled with no discomfort on walking, sitting. She has a right upper extremity PICC that is functioning well. Overall, she feels well. PHYSICAL EXAMINATION: VITAL SIGNS: Afebrile and hemodynamically stable. GENERAL: She is alert and cooperative. Right upper extremity PICC without erythema or drainage. The right groin incisional wound has closed up nicely. She has no tenderness over the symphysis pubis. Stance and gait were normal. No pelvic pressure, discomfort. ABDOMEN: Soft and nontender. No CVA tenderness. CHEST: Clear. HEART: Regular. LABORATORY STUDIES: CBC, CMP, ESR and CRP all within normal limits. CPK within normal limits. Last CT scan of the abdomen and pelvis was on 09/21/2019. IMPRESSION: Methicillin-susceptible Staph aureus bacteremia and right groin, pelvis infected soft tissue hematomas related to her Yzsyb-Dwmre-Otjkk syndrome, now with development of septic arthritis involving the pubic symphysis. I have attempted to get in surgical consultation over the last month, but cannot find anyone that will take care of this woman regarding opinion for her symphysis pubis. We will therefore repeat her imaging studies to ensure the fluid [facility] [address] [place] [address] CONSULTATION Name: SENA CARRASCO Room #: ZACK Stacy#: [id number] Admission: 11/03/19 Attend Phys: David Samuel MD Discharge: Date of : 60 Report #: [id number] collections have resolved. I would plan on discontinuing her IV therapy and going with enteral antibiotics until we can establish a completed evaluation. By: [id number] David Samuel MD /nt
[2019-11-03 18:56] VITALS: BP 111/70
--- NOTE | 2019-11-03 18:59 | NUR ---
IN FOR DAILY DAPTOMYCIN INFUSION. PATIENT FEELING WELL. DENIED PAIN, NAUSEA, DIARRHEA, FEVER AND CHILLS. PICC SITE WNL. TOLERATED INFUSION WITHOUT INCIDENT. DR. BROWER VISITED. PLAN IS FOR PATIENT TO START PO CEPHALEXIN. MRI SCHEDULED FOR NEXT WEDNESDAY AT 1245. PATIENT WILL COME TO CLINIC AFTERWARDS FOR RN TO CALL RESULTS TO DR. BROWER. PATIENT MAY BE ABLE TO HAVE PICC LINE REMOVED IF MRI RESULTS GOOD. DISMISSED IN GOOD CONDITION.
== END ==
LOC: OPONC 09:00
PROVIDERS: ATTEND Specialist
DX: A41.9 Sepsis, unspecified organism (principal); M86.9 Osteomyelitis, unspecified
CPT/HCPCS: 95000

== ENCOUNTER → 2019-11-10 | Outpatient (CLI) | payer SELFPAY ==
--- NOTE | ~2019-11-10 | HC ---
[facility] [place] [address] CONSULTATION Name: SENA CARRASCO Room #: REG [facility].#: [id number] Admission: 11/10/19 Attend Phys: David Samuel MD Discharge: Date of : 60 Report #: [id number] THIS REPORT FOR: cc: David Samuel MD,David Samuel,David Vogt MD ~ CC: David Samuel DATE OF SERVICE: 11/10/2019 OUTPATIENT INFUSION CLINIC HISTORY OF PRESENT ILLNESS: The patient returns in followup of her methicillin-susceptible Staph aureus bacteremia associated with right groin infected hematoma and abscess. This is in the setting of underlying Ihmnq-Sklpx-Vunvw syndrome. She completed 10 weeks of IV antibiotic therapy including daptomycin. She has been on cephalexin now for 2 weeks. Reports no increased pain, swelling, fever, chills or sweats. Overall, feels well. [facility] Orthopedic service is yet to allow the patient to come for evaluation. I did an MRI scan 11/07/2019, which showed signal abnormality and abnormal morphology of the pubic bone bilaterally consistent with manifestations of chronic osteomyelitis related to septic arthrosis of the pubic symphysis. No drainable fluid collection or abscess evident. T2 hyperintensity within the bilateral hip adductor musculature along the margin of the pubic bones consistent with nonspecific myositis. No intramuscular abscess, read by Dr. Sloan Main. Her laboratory studies so far that are back showed a hemoglobin of 10.8, WBC 4.7, platelet 222,000. Creatinine 0.6. Liver function test normal. CRP less than 2. PHYSICAL EXAMINATION: VITAL SIGNS: Afebrile and hemodynamically stable. GENERAL: She was alert and cooperative and ambulatory. ABDOMEN: Soft and nontender. No pubic symphysis tenderness. Compression of her pelvis resulted in no discomfort. The right groin incision has healed well with no fluid collection or erythema. SUMMARY: The patient is now 3 months into her treatment course for methicillin-susceptible Staph aureus infection of the right pelvis and groin region with septic arthritis involving the pubic symphysis and associated osteomyelitis changes on MRI scan. Clinically, she has improved. I would like orthopedic evaluation to assist in her evaluation. The patient will return in 2 weeks with repeat laboratory studies. She will stay on cephalexin. By: [id number] David Samuel MD /nt
[2019-11-10 12:20] VITALS: BP 102/50
[2019-11-10 12:22] LABS: ABSOLUTE NEUTROPHILS 3.3 thou/uL (1.4-8.2); BASOPHILS 0.7 % (0.0-2.0); EOSINOPHILS 7.1 % (0.0-3.0); HEMATOCRIT 32.3 % (37.0-47.0); HEMOGLOBIN 10.8 gm/dL (12.0-15.0); LYMPHOCYTES 14.6 % (24.0-44.0); MCH 28.9 pg (26.0-34.0); MCHC 33.4 g/dL (28.0-37.0); MCV 86.6 fL (80.0-100.0); MONOCYTES 7.3 % (1.0-8.0); PLATELET COUNT 222 thou/uL (150-400); POLYS 70.3 % (36.0-66.0); RBC 3.72 mil/uL (4.20-5.00); WBC 4.7 thou/uL (4.0-11.0)
[2019-11-10 12:38] LABS: ALBUMIN 3.5 g/dL (3.4-5.0); ANION GAP 8 mmol/L (7-16); BUN 10 mg/dL (7-18); CALCIUM 8.1 mg/dL (8.5-10.1); CHLORIDE 105 mmol/L (98-107); CO2 27 mmol/L (21-32); CREATININE 0.6 mg/dL (0.6-1.0); GLUCOSE 183 mg/dL (74-106); POTASSIUM 3.7 mmol/L (3.5-5.1); SGOT 31 U/L (15-37); SGPT 44 U/L (30-65); SODIUM 140 mmol/L (136-145); TOTAL BILIRUBIN 0.4 mg/dL (0.2-1.0); TOTAL PROTEIN 6.9 g/dL (6.4-8.2)
--- NOTE | 2019-11-10 13:30 | NUR ---
HERE FOR F/U CLINIC VISIT WITH DR. BROWER POST MRI AND COMPLETION OF IV ANTIBIOTICS. LABS DRAWN PER PICC ORDERED. PT REPORTS FEELING WELL, DOING WELL. DENIES N/V/DIARRHA. TAKING ORAL ANTIBIOTIC PRESCRIBED WITH NO NOTED SIDE EFFECTS. SEEN BY DR. BROWER. ORDERS NOTED. PICC LINE REMOVED. PT SCHEDULED FOR RETURN VISIT IN 2 WEEKS. PT INSTRUCTED TO CONTINUE CEPHALEXIN X 2 MORE WEEKS AND STATES SHE ENOUGH FOR THIS. INSTRUCTED TO REMOVED DRESSING ON RT UPPER ARM TOMORROW (FROM PICC REMOVAL). SEE DR. BROWER'S NOTES FOR FURTHER PLANS. PHONE MESSAGE LEFT WITH PT'S DTR, HANNA, WITH ABOVE INFO. MESSAGE LEFT WITH HANNA WELL TO SEE HOW THE PROCESS IS PROGRESSING WITH GETTING PT ALIGNED WITH SERVICES AT [facility]. PT DISMISSED IN STABLE CONDITION WITH HER SON. SCHEDULED TO RETURN ON 11/23.
== END ==
LOC: OPONC 10-07 15:31
PROVIDERS: ATTEND Specialist
DX: A49.01 Methicillin susceptible Staphylococcus aureus infection, unspecified site (principal); L02.214 Cutaneous abscess of groin; M79.81 Nontraumatic hematoma of soft tissue

== ENCOUNTER → 2019-11-24 | Outpatient (CLI) | payer SELFPAY ==
[2019-11-24 13:05] VITALS: BP 105/55
[2019-11-24 13:16] LABS: ABSOLUTE NEUTROPHILS 3.3 thou/uL (1.4-8.2); BASOPHILS 1.1 % (0.0-2.0); HEMATOCRIT 30.7 % (37.0-47.0); HEMOGLOBIN 10.1 gm/dL (12.0-15.0); LYMPHOCYTES 13.4 % (24.0-44.0); MCHC 33.1 g/dL (28.0-37.0); MCV 87.6 fL (80.0-100.0); MONOCYTES 6.5 % (1.0-8.0); PLATELET COUNT 265 thou/uL (150-400); RDW 15.4 % (10.5-14.5); WBC 4.6 thou/uL (4.0-11.0)
[2019-11-24 13:27] LABS: ALBUMIN 3.5 g/dL (3.4-5.0); ANION GAP 8 mmol/L (7-16); BUN 11 mg/dL (7-18); CALCIUM 8.5 mg/dL (8.5-10.1); CHLORIDE 106 mmol/L (98-107); CO2 27 mmol/L (21-32); CREATININE 0.6 mg/dL (0.6-1.0); GLUCOSE 167 mg/dL (74-106); POTASSIUM 3.7 mmol/L (3.5-5.1); SGOT 17 U/L (15-37); SGPT 24 U/L (30-65); SODIUM 141 mmol/L (136-145); TOTAL BILIRUBIN 0.2 mg/dL (0.2-1.0); TOTAL PROTEIN 7.1 g/dL (6.4-8.2)
--- NOTE | 2019-11-24 14:36 | NUR ---
IN FOR F/U VISIT WITH DR. BROWER FOR PUBIC OSTEOMYELITIS. PATIENT SAW ORTHOPEDIC SURGEON AT [facility] THIS WEEK. LABS DRAWN. DR. BROWER VISITED. PLAN IS TO CONTINUE CEPHALEXIN AND RETURN IN 3 WEEKS FOR F/U LABS AND TO SEE DR. BROWER. REQUESTED MEDICAL RECORDS FROM [facility]. CALLED FOR REFILL TO [facility]. PATIENT DENIED PAIN, NAUSEA, DIARRHEA. TOLERATING CEPHALEXIN WELL. ISNTRUCTIONS GIVEN TO JENNIFER, PATIENT'S SON PATIENT SPEAKS ONLY GREEK. SCHEDULED TO RETURN ON Dec.21 AT 1300.
== END ==
LOC: OPONC 08:18
PROVIDERS: ATTEND Specialist
DX: M86.8X8 Other osteomyelitis, other site (principal)
CPT/HCPCS: 91018

== ENCOUNTER → 2019-12-15 | Outpatient (CLI) | payer SELFPAY ==
--- NOTE | ~2019-12-15 | HC ---
[facility] [place] [address] CONSULTATION Name: SENA CARRASCO Room #: REG [facility].#: [id number] Admission: 12/15/19 Attend Phys: David Samuel MD Discharge: Date of : 60 Report #: [id number] THIS REPORT FOR: cc: David Samuel MD, Daniel J. MD Geha, Daniel J. MD ~ CC: David WHALEN M.D. DATE OF SERVICE: 12/15/2019 REASON FOR CONSULTATION: Evaluate pubic osteomyelitis. HISTORY OF PRESENT ILLNESS: The patient returns in followup of her methicillin-susceptible Staph aureus bacteremia associated with right groin infected hematoma and abscess. This is in the setting of underlying Jmtmc-Ijgmz-Fpfdv syndrome and diabetes. She completed 10 weeks of IV antibiotic therapy and has now been on cephalexin without reported side effect. No fever, chills or sweats. No increased abdominal pain or pelvic pain. She has been relatively active without discomfort. Denies any GI or complaints. She did have MRI scan on 11/07/2019 which showed signal abnormality within the pubic bone bilaterally consistent with chronic osteomyelitis and septic arthrosis of the pubic symphysis. She was seen by orthopedic surgeon, Dr. Whalen at [facility] who recommended either observation off antibiotics or on longer term antibiotics with followup. He was unable to obtain her imaging studies to review. These have been forwarded to him for his analysis. REVIEW OF SYSTEMS: A 10-point review of system was negative other than what has been described above. PHYSICAL EXAMINATION: VITAL SIGNS: Afebrile and hemodynamically stable. GENERAL: Alert and cooperative. ABDOMEN: Soft and nontender. GENITOURINARY: Pubic symphysis was nontender. EXTREMITIES: Range of motion in both lower extremities was normal. Right groin wound has healed in nicely with no erythema or fluctuance. LABORATORY STUDIES: 12/15/2019; sodium 144, potassium 3.5, creatinine 0.6. Liver function tests normal. Hemoglobin 10.8, WBC 5.1, platelet 244,000. CRP 3.6. ESR is currently pending. IMPRESSION: The patient is now 4 months into her treatment course for methicillin-susceptible Staph aureus infection of the right pelvis and groin region with septic arthritis involving the pubic symphysis and associated osteomyelitis with changes on MRI scan. Clinically, she is doing well. [address] [address] CONSULTATION Name: SENA CARRASCO [id number] Admission: 12/15/19 Attend Phys: David Samuel MD Discharge: Date of : 60 Report #: [id number] will be to continue her oral antibiotic therapy and reevaluate on a monthly basis initially with laboratory studies and examination next month, followed by MRI scan and laboratory in 2 months. If all is stable at that point, then would consider discontinuation of her antibiotics. I would like orthopedic surgeon to join in at that point for opinion as well. By: [id number] David Samuel MD /nt
[2019-12-15 13:05] VITALS: BP 113/46
[2019-12-15 13:24] LABS: ABSOLUTE NEUTROPHILS 3.6 thou/uL (1.4-8.2); BASOPHILS 0.6 % (0.0-2.0); HEMATOCRIT 32.3 % (37.0-47.0); HEMOGLOBIN 10.8 gm/dL (12.0-15.0); LYMPHOCYTES 16.6 % (24.0-44.0); MCH 29.4 pg (26.0-34.0); MCHC 33.4 g/dL (28.0-37.0); MCV 87.9 fL (80.0-100.0); MONOCYTES 5.9 % (1.0-8.0); PLATELET COUNT 244 thou/uL (150-400); POLYS 70.9 % (36.0-66.0); RBC 3.68 mil/uL (4.20-5.00); RDW 15.7 % (10.5-14.5); WBC 5.1 thou/uL (4.0-11.0)
[2019-12-15 13:57] LABS: CALCIUM 8.5 mg/dL (8.5-10.1); CREATININE 0.6 mg/dL (0.6-1.0); POTASSIUM 3.5 mmol/L (3.5-5.1)
[2019-12-15 14:03] LABS: ALBUMIN 3.8 g/dL (3.4-5.0); TOTAL BILIRUBIN 0.3 mg/dL (0.2-1.0); TOTAL PROTEIN 7.4 g/dL (6.4-8.2)
--- NOTE | 2019-12-15 16:41 | NUR ---
IN FOR [facility] VISIT WITH DR. BROWER FOR FOLLOW UP OF PUBIC OSTEOMYELITIS. DR. BROWER REVIEWED REPORT FROM ORTHOPEDIC SURGEON FROM [facility]. ALL SCANS SINCE AUGUST SENT TO DR. WHALEN AT [facility] VIA RADIOLOGY AND ALL REPORTS FAXED ALSO. PRESCRIPTION FOR CEPHALEXIN CALLED TO [facility] ORDERED. PATIENT IS FEELING WELL. DENIED PAIN. PATIENT TO CONTINUE CEPHALEXIN AND F/U APPT SCHEDULED FOR 01/12/20. WILL NEED REPEAT MRI IN JANUARY. WILL FOLLOWUP FOR ORDER WITH NEXT CLINIC VISIT. PATIENT'S HELPED WITH [employer] TRANSLATION. DISMISSED IN GOOD CONDITION.
== END ==
LOC: OPONC 10:27
PROVIDERS: ATTEND Specialist
DX: M86.8X8 Other osteomyelitis, other site (principal); B95.62 Methicillin resistant Staphylococcus aureus infection as the cause of diseases classified elsewhere
CPT/HCPCS: 91018

== ENCOUNTER → 2020-01-12 | Outpatient (CLI) | payer SELFPAY ==
[2020-01-12 13:33] LABS: ABSOLUTE NEUTROPHILS 3.1 thou/uL (1.4-8.2); BASOPHILS 0.7 % (0.0-2.0); EOSINOPHILS 3.9 % (0.0-3.0); HEMATOCRIT 29.7 % (37.0-47.0); HEMOGLOBIN 9.7 gm/dL (12.0-15.0); LYMPHOCYTES 12.4 % (24.0-44.0); MCH 27.6 pg (26.0-34.0); MCHC 32.5 g/dL (28.0-37.0); MONOCYTES 7.3 % (1.0-8.0); PLATELET COUNT 265 thou/uL (150-400); POLYS 75.7 % (36.0-66.0); WBC 4.4 thou/uL (4.0-11.0)
[2020-01-12 14:01] LABS: ALBUMIN 3.7 g/dL (3.4-5.0); CALCIUM 8.6 mg/dL (8.5-10.1); CREATININE 0.6 mg/dL (0.6-1.0); POTASSIUM 3.6 mmol/L (3.5-5.1); TOTAL BILIRUBIN 0.3 mg/dL (0.2-1.0)
--- NOTE | 2020-01-12 18:17 | NUR ---
IN FOR CLINIC VISIT WITH DR. TYREL BROWER. LABS DRAWN ORDERED. DR. BROWER SAW PATIENT. PLAN IS TO REPEAT MRI OF SYMPHYSIS PUBIS IN [address] BROWER THEN. MRI SCHEDULED. PATIENT STATED FEELING WELL. STILL TAKING CEPHALEXIN AND TO CONTINUE THIS. DISMISSED IN GOOD CONDITION.
== END ==
LOC: OPONC 13:04
PROVIDERS: ATTEND Specialist
DX: M86.9 Osteomyelitis, unspecified (principal)
CPT/HCPCS: 91016

== ENCOUNTER → 2020-02-16 | Outpatient (CLI) | payer SELFPAY ==
--- NOTE | ~2020-02-16 | HC ---
[facility] [place] [address] CONSULTATION Name: SENA CARRASCO Room #: REG [facility].#: [id number] Admission: 02/16/20 Attend Phys: David Samuel MD Discharge: Date of : 60 Report #: [id number] THIS REPORT FOR: cc: David Samuel MD, Daniel J. MD Geha, Daniel J. MD ~ DATE OF SERVICE: 02/16/2020 INFECTIOUS DISEASES FOLLOWUP OUTPATIENT CLINIC EVALUATION HISTORY OF PRESENT ILLNESS: The patient returns in followup of her methicillin-susceptible Staph aureus bacteremia associated with right groin infected hematoma and abscess in the setting of Xkvht-Joicg-Yswjl syndrome and diabetes. She received a 10-week course of IV antibiotic therapy, followed by cephalexin, which she continues on at this time. She is now 6 months into her treatment course. Her pain has resolved. MRI scan performed on 11/07/2019 did show signal abnormality within the pubic bone bilaterally consistent with chronic osteomyelitis and septic arthrosis at the pubic symphysis. She was seen by Dr. Acevedo at [facility] Orthopedic Surgery division, who recommended long-term antibiotics versus observation with close followup. I elected to continue her antibiotic therapy and repeat MRI scan, which was completed this past week. MRI does show stability to the pubic symphysis region with no increased fluid collection; however, she did show evidence of left ileal fracture. Overall, the patient feels well. REVIEW OF SYSTEMS: No cardiopulmonary, GI or complaints. PHYSICAL EXAMINATION: VITAL SIGNS: Afebrile and hemodynamically stable. GENERAL: He is alert and cooperative. ABDOMEN: Soft and nontender. Right groin was well healed. No range of motion abnormality in either hip. Stance and gait were normal. Pelvic pressure caused no increased pain. It appeared that her sacroiliac joints were nontender. LABORATORY STUDIES: Reviewed, noting normal inflammatory markers. IMPRESSION: 1. Methicillin-susceptible Staph aureus right pelvic and groin infection with subsequent septic arthrosis involving the pubic symphysis and associated osteomyelitis. Now has evidence of pelvic fracture, thought likely insufficiency fracture. The patient reports no trauma. 2. Diabetes. [facility] [address] [place] [address] CONSULTATION Name: SENA CARRASCO Room #: REG [facility] Regis#: [id number] Admission: 02/16/20 Attend Phys: David Samuel MD Discharge: Date of : 60 Report #: [id number] 3. Chwvx-Wtvtr-Cunvm syndrome. RECOMMENDATIONS: We will continue her current antibiotic program. I would like orthopedic surgery followup evaluation. We will be able to discuss overall treatment plan following this. Likely consider finishing her course of therapy with close observation including examination, laboratory studies and imaging. The patient will follow up after orthopedic evaluation. By: [id number] David Samuel MD /nt
[2020-02-16 13:30] VITALS: BP 110/55
[2020-02-16 13:52] LABS: HEMATOCRIT 29.1 % (37.0-47.0); HEMOGLOBIN 9.5 gm/dL (12.0-15.0); MCH 26.7 pg (26.0-34.0); MCHC 32.5 g/dL (28.0-37.0); MCV 82.3 fL (80.0-100.0); RBC 3.54 mil/uL (4.20-5.00); RDW 15.4 % (10.5-14.5)
[2020-02-16 14:04] LABS: ALBUMIN 3.7 g/dL (3.4-5.0); CALCIUM 8.4 mg/dL (8.5-10.1); CREATININE 0.6 mg/dL (0.6-1.0); POTASSIUM 3.7 mmol/L (3.5-5.1); TOTAL BILIRUBIN 0.2 mg/dL (0.2-1.0); TOTAL PROTEIN 6.9 g/dL (6.4-8.2)
--- NOTE | 2020-02-16 16:20 | NUR ---
IN FOR CLINIC VISIT IN F/U OF PUBIC OSTEOMYELITIS. DR. BROWER VISITED AND REVIEWED MRI RESULTS WITH PATIENT AND . LABS DONE. PATIENT STATED FEELING WELL. RECEIVED NEW ORDERS TO SEND MRI FILM TO DR. WHALEN AT [facility]. RADIOLOGY SENT THIS OVER TODAY. FAXED TODAY'S VISIT REPORT TO DR. WHALEN. INSTRUCTED PATIENT TO CONTINUE CURRENT PO ANTIBIOTIC, AND CALL AND MAKE APPT WITH DR. WHALEN. PROVIDED PHONE NUMBERS. PLAN IS TO FOLLOW UP AGAIN WITH DR. BROWER AFTER PATIENT SEE'S DR. WHALEN. DISMISSED IN GOOD CONDITION.
== END ==
LOC: OPONC 13:09
PROVIDERS: ATTEND Specialist
DX: M86.9 Osteomyelitis, unspecified (principal)
CPT/HCPCS: 91018